=== PATIENT | female | born 2000 | race Caucasian/White ===

== ENCOUNTER 2021-01-21 22:00 | Emergency (ER) | payer MEDICAID, SELFPAY ==
--- NOTE | ~2021-01-21 | CT_ITS ---
EXAMINATION: CT ABDOMEN AND PELVIS WITHOUT CONTRAST CLINICAL INFORMATION: Right upper quadrant and right flank pain COMPARISON: 11/04/2019 TECHNIQUE: Multidetector volumetric imaging was performed from the superior aspect of the liver through the pubic symphysis. Sagittal and coronal reformatted images were obtained on the technologist's workstation. This CT examination was performed using dose optimization techniques as appropriate, variously including the following: *Automated exposure control *Adjustment of mA and/or kV according to patient size (this includes techniques or standardized protocols for targeted exams where dose is matched to indication/reason for exam; i.e. extremities or head) *Use of iterative reconstruction technique DLP: 749 mGy-cm FINDINGS: LUNG BASES: The visualized lung bases are unremarkable. LIVER, GALLBLADDER, AND BILIARY TREE: The liver is normal in size, shape, and attenuation. No focal hepatic lesion or biliary ductal dilatation is present. The gallbladder is unremarkable with no evidence of radiopaque gallstones, gallbladder wall thickening, or obvious pericholecystic inflammatory changes. PANCREAS: Unremarkable. SPLEEN: Unremarkable. ADRENAL GLANDS: Unremarkable. KIDNEYS AND URETERS: The kidneys are normal in size, shape, and attenuation. No hydronephrosis or hydroureter. 0.1 cm left upper pole calculus is 9 cm from the posterior axillary line. BLADDER: Decompressed with no gross abnormality. GASTROINTESTINAL TRACT: Normal appearance of the stomach. The small bowel is normal in caliber without obstruction. Fecalization of the distal ileum suggests slow transit. Normal appendix. No colonic wall thickening or inflammatory change. No free air or free fluid. ABDOMINAL WALL: No significant hernia is appreciated. LYMPH NODES: Normal. VASCULAR: Unremarkable. PELVIC VISCERA: The uterus and adnexa are unremarkable. OSSEOUS STRUCTURES: No acute or suspicious osseous abnormality. CT/CT abdomen pelvis wo con IMPRESSION: No acute findings in the abdomen or pelvis. No inflammatory changes. No hydronephrosis. Tiny nonobstructing left upper pole renal calculus.
[2021-01-21 22:06] VITALS: BP 128/68; PULSE 86; RESP 18; TEMP 36.6; O2SAT 95; BMI 34.7
--- NOTE | 2021-01-21 23:01 | ED_ITS ---
HPI - General Adult General Chief complaint: General Medical <Denise Jimenez NP - Last Filed: 01/22/21 01:30> Stated complaint: flank pain <Denise Jimenez NP - Last Filed: 01/22/21 01:30> Time Seen by Provider: 01/22/21 01:16 <Denise Jimenez NP - Last Filed: 01/22/21 01:30> Source: patient <Denise Jimenez NP - Last Filed: 01/22/21 01:30> Mode of arrival: ambulatory <Denise Jimenez NP - Last Filed: 01/22/21 01:30> Limitations: no limitations <Denise Jimenez NP - Last Filed: 01/22/21 01:30> History of Present Illness HPI narrative: 20-year-old female 2 months presents with 1 month of right upper quadrant pain radiating to her back and shoulder. States that pain has been progressively getting worse, worse when eating and accompanied with nausea and dry heaves.. She does not describe any trauma or abuse, denies chest pain or pressure, palpitations, shortness of breath, shortness of breath on exertion, abdominal distention, dysuria, hematuria, edema, vaginal bleeding or discharge, fevers or chills. <Denise Jimenez NP - Last Filed: 01/22/21 01:30> Onset (ago): month(s) (1) <Denise Jimenez NP - Last Filed: 01/22/21 01:30> Location: back and abdomen <Denise Jimenez NP - Last Filed: 01/22/21 01:30> Severity: moderate <Denise Jimenez NP - Last Filed: 01/22/21 01:30> Severity scale (1-10): 7 <Denise Jimneez NP - Last Filed: 01/22/21 01:30> Quality: aching and constant <Denise Jimenez NP - Last Filed: 01/22/21 01:30> Pain Consistency: constant <Denise Jimenez NP - Last Filed: 01/22/21 01:30> Relieving factors: none <Denise Jimenez NP - Last Filed: 01/22/21 01:30> Exacerbating factors: eating <SHEN Mast Last Filed: 01/22/21 01:30> Associated symptoms: loss of appetite and malaise <SHEN Mast Last Filed: 01/22/21 01:30> Related Data Home medications: Previous Rx's Medication Instructions Recorded cyclobenzaprine 10 mg PO TID PRN #14 tab 01/22/21 <SHEN Mast Last Filed: 01/22/21 01:30> Allergies/adverse reactions: Allergies Allergy/AdvReac Type Severity Reaction Status Date / Time No Known Allergies Allergy Verified 01/21/21 22:11 [No Known Allergies*] <SHEN Mast Last Filed: 01/22/21 01:30> Review of Systems Review of Systems: Constitutional: No Weight loss, No Fever, No Chills, No Night Sweats, No Fatigue, No Malaise ENT/Mouth: No Hearing loss, No Ear Pain, No Nasal Congestion, No Sinus Pain, No Hoarseness, No sore throat, No Rhinorrhea, No Swallowing Difficulty Eyes: No Eye Pain, No Swelling, No Redness, No Foreign Body, No Discharge, No Vision Changes Cardiovascular: No Chest Pain, No SOB, No Dyspnea on Exertion, No Orthopnea, No Edema, No Palpitations Respiratory: No Cough, No Sputum, No Wheezing, No Smoke Exposure, No Dyspnea Gastrointestinal: Positive Nausea, no Vomiting, positive Diarrhea, positive right upper quadrant abdominal Pain, No Hematochezia, No Melena Genitourinary: Positive right flank pain, no irregular bleeding, No Dysuria, No Urinary Frequency, No Hematuria, No Urinary Incontinence, No Urgency, No Urinary Flow Changes, No Hesitancy Musculoskeletal: No joint pain, No Myalgias, No Joint Swelling Skin: No Skin Lesions, No rash Neuro: No Weakness, No Numbness, No Paresthesias, No Loss of Consciousness, No Dizziness, No Headache Psych: No Anxiety/Panic, No Depression, No SI/HI/AH/VH, No Social Issues Heme/Lymph: No Bruising, No Bleeding,No Lymphadenopathy Endocrine: No Polyuria, No Polydipsia, No Temperature Intolerance <SHEN Mast Last Filed: 01/22/21 01:30> Yes all other systems are reviewed and are negative <SHEN Mast Last Filed: 01/22/21 01:30> [facility] Past Medical History Attestation statement: The following information was validated with the patient. <Denise Jimenez NP - Last Filed: 01/22/21 01:30> Source: old records reviewed <Denise Jimenez NP - Last Filed: 01/22/21 01:30> Medical History: Medical History Asthma Kidney stone <Denise Jimenez NP - Last Filed: 01/22/21 01:30> Social History Social History: Social History Advance Directives: No Advance Directives Information Provided: No <Denise Jimenez NP - Last Filed: 01/22/21 01:30> Physical Exam Vital Signs: Vital Signs: Last Vital Signs Temp 97.8 F 01/21/21 22:06 Pulse 81 01/22/21 01:27 Resp 18 01/22/21 03:49 BP 131/73 01/22/21 01:27 Pulse Ox 93 01/22/21 01:27 Body Mass Index 34.7 <Denise Jimenez NP - Last Filed: 01/22/21 01:30> Vital Signs: Last Vital Signs Temp 97.8 F 01/21/21 22:06 Pulse 81 01/22/21 01:27 Resp 18 01/22/21 03:49 BP 131/73 01/22/21 01:27 Pulse Ox 93 01/22/21 01:27 Body Mass Index 34.7 <Jada Stephenson MD - Last Filed: 01/22/21 04:33> Appearance: Alert. Oriented X3. Moderate distress. Eyes: Pupils equal, round and reactive to light. ENT: Pharynx normal. Neck: Normal inspection. Neck supple. CVS: Normal heart rate and rhythm. Pulses normal. Respiratory: No respiratory distress. Breath sounds normal. Abdomen: Soft and tender to right upper quadrant, positive Lawrence. Negative obturator, psoas. Skin: Skin warm and dry. Normal skin color. Normal skin turgor. Extremities: No lower extremity edema. Neuro: No motor deficit. No sensory deficit. <Denise Jimenez NP - Last Filed: 01/22/21 01:30> Course Course Course Narrative: 20-year-old female 2 months presents with 1 month of right upper quadrant pain radiating to her back and shoulder. Will order CBC, Chem 7, urinalysis, liver enzymes, give pain management and L of fluids. CBC and Chem 7 are negative for acute findings, urinalysis is negative. BUN mildly elevated at 18, possibly due to dehydration secondary to poor p.o. intake. We have resuscitated with [address] scan of abdomen pending. 1:17 a.m. patient states that Toradol was minimally effective. Order for morphine 4 mg IV push. 1:29 a.[address]. sign out to Dr Stephenson <Denise Jimenez NP - Last Filed: 01/22/21 01:30> I received sign-out from nurse practitioner Tony. I discussed patient's symptoms, patient states the pain is on the back on the right side. Patient states it hurts more when she moves. Patient states that earlier this evening, she told [employer] that pain makes the pain worse, but now states that food does not worsen his syptoms, states that she's cosntantly nauseous and food makes the nausea worse but not the pain. On my physical exam, patient did not have right upper quadrant pain, negative Lawrence sign, patient has no CVA tenderness either. States whenever she flexes or extends her back hurts more. CT scan shows no acute pathology. Patient has pain likely musculoskeletal <Jada Stephenson MD - Last Filed: 01/22/21 04:33> Medical Decision Making Differential Diagnosis Differential Diagnosis: Kidney stone, cholelithiasis, GERD, PUD, gastritis <Denise Jimenez NP - Last Filed: 01/22/21 01:30> Medical Records Medical records reviewed: Yes I reviewed the patient's medical records. <Denise Jimenez NP - Last Filed: 01/22/21 01:30> Lab Data Lab results reviewed: Yes I reviewed the patient's lab results. <Denise Jimenez NP - Last Filed: 01/22/21 01:30> Result diagrams: : 01/21/21 23:51 01/21/21 23:51 <Denise Jimenez NP - Last Filed: 01/22/21 01:30> Labs: Lab Results 01/21/21 01/21/21 01/21/21 Range/Units 23:51 23:51 23:51 WBC 10.1 (4.8-10.8) X10*3/uL RBC 4.13 L (4.20-5.50) X10*6/uL Hgb 11.9 L (12.0-16.0) g/dl Hct 36.6 L (37-47) % MCV 88.6 (80-98) fL MCH 28.8 (27.0-33.0) pg MCHC 32.5 (31.0-35.0) g/dl RDW 13.5 (11.0-16.0) % Plt Count 262 (160-400) X10*3/uL MPV 10.7 (9.4-12.3) fL Immature Gran % (Auto) 0.2 (0.0-0.4) % Neut % (Auto) 52.6 (45-73) % Lymph % (Auto) 38.4 (20-40) % [place] % (Auto) 6.5 (2-11) % Eos % (Auto) 2.0 (0-4) % Baso % (Auto) 0.3 (0-2) % Lymph # (Auto) 3.9 (1.2-4.9) X10*3/uL [place] # (Auto) 0.7 (0.1-1.2) X10*3/uL Eos # (Auto) 0.2 (0.0-0.4) X10*3/uL Baso # (Auto) 0.0 (0.0-0.2) X10*3/uL Abs Immat Gran (auto) 0.02 (0.00-0.03) X10*3/uL Absolute Neuts (auto) 5.3 (2.0-8.3) X10*3/uL Absolute Nucleated RBC 0.000 (0.0-0.012) X10*3/uL Nucleated RBC % (auto) 0.0 (0.0-0.2) /100WBC PT 13.4 H (10.8-13.0) SEC INR 1.1 (0.9-1.1) APTT 34.0 (24.1-38.0) SEC Sodium 140 (135-145) mmol/L Potassium 3.8 (3.3-5.1) mmol/L Chloride 105 (96-108) mmol/L Carbon Dioxide 24 (22-29) mmol/L Anion Gap 15 (12-20) BUN 18 H (9-16) mg/dL Creatinine 0.73 (0.5-1.4) mg/dL Estim Creat Clear Calc 127.8 Estimated GFR > 60 Random Glucose 84 (60-115) mg/dL Calcium 9.1 (8.4-10.2) mg/dL Total Bilirubin 0.5 (0.0-1.0) mg/dL Direct Bilirubin 0.2 (0.0-0.5) mg/dL AST 14 (5-31) U/L ALT 13 (0-31) U/L Alkaline Phosphatase 77 (39-117) U/L Total Protein 7.6 (6.5-8.0) g/dL Albumin 4.3 (3.5-5.0) g/dL Lipase 13 (8-78) U/L Urine Color Urine Appearance Urine pH (5.0-8.0) Ur Specific [place] (1.005-1.025) Urine Protein (NEG-TRACE) MG/DL Urine Glucose (UA) (NEG) MG/DL Urine Ketones (NEG) MG/DL Urine Blood (NEG) Urine Nitrite (NEG) Ur Leukocyte Esterase (NEG) Urine Test (NEGATIVE) 01/21/21 Range/Units 23:51 WBC (4.8-10.8) X10*3/uL RBC (4.20-5.50) X10*6/uL Hgb (12.0-16.0) g/dl Hct (37-47) % MCV (80-98) fL MCH (27.0-33.0) pg MCHC (31.0-35.0) g/dl RDW (11.0-16.0) % Plt Count (160-400) X10*3/uL MPV (9.4-12.3) fL Immature Gran % (Auto) (0.0-0.4) % Neut % (Auto) (45-73) % Lymph % (Auto) (20-40) % [place] % (Auto) (2-11) % Eos % (Auto) (0-4) % Baso % (Auto) (0-2) % Lymph # (Auto) (1.2-4.9) X10*3/uL [place] # (Auto) (0.1-1.2) X10*3/uL Eos # (Auto) (0.0-0.4) X10*3/uL Baso # (Auto) (0.0-0.2) X10*3/uL Abs Immat Gran (auto) (0.00-0.03) X10*3/uL Absolute Neuts (auto) (2.0-8.3) X10*3/uL Absolute Nucleated RBC (0.0-0.012) X10*3/uL Nucleated RBC % (auto) (0.0-0.2) /100WBC PT (10.8-13.0) SEC INR (0.9-1.1) APTT (24.1-38.0) SEC Sodium (135-145) mmol/L Potassium (3.3-5.1) mmol/L Chloride (96-108) mmol/L Carbon Dioxide (22-29) mmol/L Anion Gap (12-20) BUN (9-16) mg/dL Creatinine (0.5-1.4) mg/dL Estim Creat Clear Calc Estimated GFR Random Glucose (60-115) mg/dL Calcium (8.4-10.2) mg/dL Total Bilirubin (0.0-1.0) mg/dL Direct Bilirubin (0.0-0.5) mg/dL AST (5-31) U/L ALT (0-31) U/L Alkaline Phosphatase (39-117) U/L Total Protein (6.5-8.0) g/dL Albumin (3.5-5.0) g/dL Lipase (8-78) U/L Urine Color YELLOW Urine Appearance CLEAR Urine pH 5.5 (5.0-8.0) Ur Specific [place] >= 1.030 H (1.005-1.025) Urine Protein NEG (NEG-TRACE) MG/DL Urine Glucose (UA) NEG (NEG) MG/DL Urine Ketones NEG (NEG) MG/DL Urine Blood NEG (NEG) Urine Nitrite NEG (NEG) Ur Leukocyte Esterase NEG (NEG) Urine Test NEGATIVE (NEGATIVE) <Denise Curryonato, [employer] - Last Filed: 01/22/21 01:30> Lab Results 01/21/21 01/21/21 01/21/21 Range/Units 23:51 23:51 23:51 WBC 10.1 (4.8-10.8) X10*3/uL RBC 4.13 L (4.20-5.50) X10*6/uL Hgb 11.9 L (12.0-16.0) g/dl Hct 36.6 L (37-47) % MCV 88.6 (80-98) fL MCH 28.8 (27.0-33.0) pg MCHC 32.5 (31.0-35.0) g/dl RDW 13.5 (11.0-16.0) % Plt Count 262 (160-400) X10*3/uL MPV 10.7 (9.4-12.3) fL Immature Gran % (Auto) 0.2 (0.0-0.4) % Neut % (Auto) 52.6 (45-73) % Lymph % (Auto) 38.4 (20-40) % [place] % (Auto) 6.5 (2-11) % Eos % (Auto) 2.0 (0-4) % Baso % (Auto) 0.3 (0-2) % Lymph # (Auto) 3.9 (1.2-4.9) X10*3/uL [place] # (Auto) 0.7 (0.1-1.2) X10*3/uL Eos # (Auto) 0.2 (0.0-0.4) X10*3/uL Baso # (Auto) 0.0 (0.0-0.2) X10*3/uL Abs Immat Gran (auto) 0.02 (0.00-0.03) X10*3/uL Absolute Neuts (auto) 5.3 (2.0-8.3) X10*3/uL Absolute Nucleated RBC 0.000 (0.0-0.012) X10*3/uL Nucleated RBC % (auto) 0.0 (0.0-0.2) /100WBC PT 13.4 H (10.8-13.0) SEC INR 1.1 (0.9-1.1) APTT 34.0 (24.1-38.0) SEC Sodium 140 (135-145) mmol/L Potassium 3.8 (3.3-5.1) mmol/L Chloride 105 (96-108) mmol/L Carbon Dioxide 24 (22-29) mmol/L Anion Gap 15 (12-20) BUN 18 H (9-16) mg/dL Creatinine 0.73 (0.5-1.4) mg/dL Estim Creat Clear Calc 127.8 Estimated GFR > 60 Random Glucose 84 (60-115) mg/dL Calcium 9.1 (8.4-10.2) mg/dL Total Bilirubin 0.5 (0.0-1.0) mg/dL Direct Bilirubin 0.2 (0.0-0.5) mg/dL AST 14 (5-31) U/L ALT 13 (0-31) U/L Alkaline Phosphatase 77 (39-117) U/L Total Protein 7.6 (6.5-8.0) g/dL Albumin 4.3 (3.5-5.0) g/dL Lipase 13 (8-78) U/L Urine Color Urine Appearance Urine pH (5.0-8.0) Ur Specific [place] (1.005-1.025) Urine Protein (NEG-TRACE) MG/DL Urine Glucose (UA) (NEG) MG/DL Urine Ketones (NEG) MG/DL Urine Blood (NEG) Urine Nitrite (NEG) Ur Leukocyte Esterase (NEG) Urine Test (NEGATIVE) 01/21/21 Range/Units 23:51 WBC (4.8-10.8) X10*3/uL RBC (4.20-5.50) X10*6/uL Hgb (12.0-16.0) g/dl Hct (37-47) % MCV (80-98) fL MCH (27.0-33.0) pg MCHC (31.0-35.0) g/dl RDW (11.0-16.0) % Plt Count (160-400) X10*3/uL MPV (9.4-12.3) fL Immature Gran % (Auto) (0.0-0.4) % Neut % (Auto) (45-73) % Lymph % (Auto) (20-40) % [place] % (Auto) (2-11) % Eos % (Auto) (0-4) % Baso % (Auto) (0-2) % Lymph # (Auto) (1.2-4.9) X10*3/uL [place] # (Auto) (0.1-1.2) X10*3/uL Eos # (Auto) (0.0-0.4) X10*3/uL Baso # (Auto) (0.0-0.2) X10*3/uL Abs Immat Gran (auto) (0.00-0.03) X10*3/uL Absolute Neuts (auto) (2.0-8.3) X10*3/uL Absolute Nucleated RBC (0.0-0.012) X10*3/uL Nucleated RBC % (auto) (0.0-0.2) /100WBC PT (10.8-13.0) SEC INR (0.9-1.1) APTT (24.1-38.0) SEC Sodium (135-145) mmol/L Potassium (3.3-5.1) mmol/L Chloride (96-108) mmol/L Carbon Dioxide (22-29) mmol/L Anion Gap (12-20) BUN (9-16) mg/dL Creatinine (0.5-1.4) mg/dL Estim Creat Clear Calc Estimated GFR Random Glucose (60-115) mg/dL Calcium (8.4-10.2) mg/dL Total Bilirubin (0.0-1.0) mg/dL Direct Bilirubin (0.0-0.5) mg/dL AST (5-31) U/L ALT (0-31) U/L Alkaline Phosphatase (39-117) U/L Total Protein (6.5-8.0) g/dL Albumin (3.5-5.0) g/dL Lipase (8-78) U/L Urine Color YELLOW Urine Appearance CLEAR Urine pH 5.5 (5.0-8.0) Ur Specific [place] >= 1.030 H (1.005-1.025) Urine Protein NEG (NEG-TRACE) MG/DL Urine Glucose (UA) NEG (NEG) MG/DL Urine Ketones NEG (NEG) MG/DL Urine Blood NEG (NEG) Urine Nitrite NEG (NEG) Ur Leukocyte Esterase NEG (NEG) Urine Test NEGATIVE (NEGATIVE) <Jada Stephenson MD - Last Filed: 01/22/21 04:33> Imaging Data CT scan - abdomen: Radiologist's impression: FINDINGS: LUNG BASES: The visualized lung bases are unremarkable. LIVER, GALLBLADDER, AND BILIARY TREE: The liver is normal in size, shape, and attenuation. No focal hepatic lesion or biliary ductal dilatation is present. The gallbladder is unremarkable with no evidence of radiopaque gallstones, gallbladder wall thickening, or obvious pericholecystic inflammatory changes. PANCREAS: Unremarkable. SPLEEN: Unremarkable. ADRENAL GLANDS: Unremarkable. KIDNEYS AND URETERS: The kidneys are normal in size, shape, and attenuation. No hydronephrosis or hydroureter. 0.1 cm left upper pole calculus is 9 cm from the posterior axillary line. BLADDER: Decompressed with no gross abnormality. GASTROINTESTINAL TRACT: Normal appearance of the stomach. The small bowel is normal in caliber without obstruction. Fecalization of the distal ileum suggests slow transit. Normal appendix. No colonic wall thickening or inflammatory change. No free air or free fluid. ABDOMINAL WALL: No significant hernia is appreciated. LYMPH NODES: Normal. VASCULAR: Unremarkable. PELVIC VISCERA: The uterus and adnexa are unremarkable. OSSEOUS STRUCTURES: No acute or suspicious osseous abnormality. CT/CT abdomen pelvis wo con IMPRESSION: No acute findings in the abdomen or pelvis. No inflammatory changes. No hydronephrosis. Tiny nonobstructing left upper pole renal calculus. <Jada Stephenson MD - Last Filed: 01/22/21 04:33> Discharge Plan Discharge Clinical Impression: Back pain Qualifiers: Back pain location: back pain in unspecified location Chronicity: chronic Back pain laterality: right Qualified Code(s): M54.9 - Dorsalgia, unspecified <Denise Jimenez NP - Last Filed: 01/22/21 01:30> Patient Disposition: Home, Self-Care <Denise Jimenez NP - Last Filed: 01/22/21 01:30> Instructions: Back Pain (ED) <Denise Jimenez NP - Last Filed: 01/22/21 01:30> Additional Instructions: Please follow-up with your primary care physician tomorrow. If you have any worsening or new symptoms, please return to the emergency room or call 911 <Denise Jimenez NP - Last Filed: 01/22/21 01:30> Prescriptions: New cyclobenzaprine 10 mg tablet 10 mg PO TID PRN (Reason: muscle spasm) Qty: 14 RF: 0 <Denise Jimenez NP - Last Filed: 01/22/21 01:30>
[2021-01-21 23:55] LABS: Basophils Percent Auto 0.3 % (0-2); Eosinophils Absolute Auto 0.2 X10*3/uL (0.0-0.4); Hematocrit 36.6 % (37-47); Hemoglobin 11.9 g/dl (12.0-16.0); Imm Gran Abs Auto 0.02 X10*3/uL (0.00-0.03); Imm Gran Pct Auto 0.2 % (0.0-0.4); Lymphocytes Absolute Auto 3.9 X10*3/uL (1.2-4.9); Lymphocytes Percent Auto 38.4 % (20-40); Mean Corpuscular HGB Conc 32.5 g/dl (31.0-35.0); Mean Corpuscular Hemoglobin 28.8 pg (27.0-33.0); Mean Corpuscular Volume 88.6 fL (80-98); Mean Platelet Volume 10.7 fL (9.4-12.3); Monocytes Absolute Auto 0.7 X10*3/uL (0.1-1.2); Monocytes Percent Auto 6.5 % (2-11); Neutrophils Absolute Auto 5.3 X10*3/uL (2.0-8.3); Neutrophils Percent Auto 52.6 % (45-73); Platelet Count 262 X10*3/uL (160-400); Red Blood Count 4.13 X10*6/uL (4.20-5.50); Red Cell Distribution Width 13.5 % (11.0-16.0); White Blood Count 10.1 X10*3/uL (4.8-10.8)
[2021-01-21] MEDS: 0.9 % Sodium Chloride 1,000 ML 999 ML IVCONT (23:55)
[2021-01-21 23:56] LABS: MANUAL DIFF FLAG NO
[2021-01-21] MEDS: Ketorolac Tromethamine 30 MG/ML VIAL IVPUSH (23:58)
[2021-01-21] MEDS: ondansetron HCL 4 MG/2 ML VIAL IVPUSH (23:58)
[2021-01-21 23:59] LABS: Glucose Urine UA NEG (NEG); Leukocyte Esterase Urine NEG (NEG); Nitrite Urine NEG (NEG); PH 5.5 (5.0-8.0); Specific Gravity - Urine >= 1.030 (1.005-1.025); Urine Blood NEG (NEG); Urine Ketones NEG (NEG); Urine Protein NEG (NEG-TRACE)
[2021-01-22 00:02] LABS: Appearance Urine CLEAR; Color Urine YELLOW
[2021-01-22 00:03] LABS: INTERNATIONAL NORM RATIO 1.1 (0.9-1.1); Prothrombin Time 13.4 SEC (10.8-13.0)
[2021-01-22 00:17] LABS: Alanine Aminotransferase 13 U/L (0-31); Albumin Level 4.3 g/dL (3.5-5.0); Alkaline Phosphatase 77 U/L (39-117); Anion Gap 15 (12-20); Aspartate Amino Transferase 14 U/L (5-31); Bilirubin Direct 0.2 mg/dL (0.0-0.5); Bilirubin Total 0.5 mg/dL (0.0-1.0); Blood Urea Nitrogen 18 mg/dL (9-16); Calcium 9.1 mg/dL (8.4-10.2); Carbon Dioxide 24 mmol/L (22-29); Chloride 105 mmol/L (96-108); Creatinine Clr Calc Pharmacy 127.8; Estimated Glomerular Filt Rate > 60; Glucose Random 84 mg/dL (60-115); Lipase 13 U/L (8-78); Potassium 3.8 mmol/L (3.3-5.1); Sodium 140 mmol/L (135-145); Total Protein 7.6 g/dL (6.5-8.0)
[2021-01-22 01:27] VITALS: BP 131/73; PULSE 81; RESP 18; O2SAT 93
[2021-01-22 01:28] VITALS: RESP 18
[2021-01-22] MEDS: Morphine Sulfate 4 MG/ML CARTRIDGE IVPUSH ×2 (01:28→03:49)
[2021-01-22 03:17] LABS: UPreg QC Valid YES; Urine Pregnancy NEGATIVE (NEGATIVE)
--- NOTE | 2021-01-22 03:29 | PC.NURSE ---
pt taken to rad. via stretcher.
[2021-01-22 03:49] VITALS: RESP 18
[2021-01-22 04:00] VITALS: BP 116/64; PULSE 67; RESP 18; O2SAT 98
[2021-01-22] MEDS: diazePAM 5 MG TABLET PO (04:45)
[2021-01-22 04:48] LABS: Influenza A PCR NEGATIVE (Negative); Influenza B PCR NEGATIVE (Negative); Resp Syncy Virus RNA Qual PCR NEGATIVE (Negative); SARS COV2 PCR INHOUSE NEGATIVE (Negative)
== END 2021-01-22 04:52 | disposition home or self-care (01) ==
PROVIDERS: Nurse Practitioner Family; Emergency Provider Emergency Medicine
DX: G89.29 Other chronic pain (principal); M54.9 Dorsalgia, unspecified; N20.0 Calculus of kidney; Z20.822 Contact with and (suspected) exposure to COVID-19; Z87.442 Personal history of urinary calculi
CPT/HCPCS: 0241U; 36415; 74176; 80048; 80076; 81003; 81025; 83690; 85025; 85610; 85730; 96361; 96374; 96375; 96376; 99284; J1885; J2270; J2405

== ENCOUNTER 2021-07-30 17:13 | Emergency (ER) | payer MEDICAID, SELFPAY ==
--- NOTE | ~2021-07-30 | CT_ITS ---
EXAMINATION: CT ABDOMEN AND PELVIS WITHOUT CONTRAST CLINICAL INFORMATION: Bilateral flank pain. COMPARISON: CT abdomen and pelvis 01/22/2021. TECHNIQUE: Multidetector volumetric imaging was performed from the superior aspect of the liver through the pubic symphysis. Sagittal and coronal reformatted images were obtained on the technologist's workstation. This CT examination was performed using dose optimization techniques as appropriate, variously including the following: *Automated exposure control. *Adjustment of mA and/or kV according to patient size (this includes techniques or standardized protocols for targeted exams where dose is matched to indication/reason for exam; i.e. extremities or head). *Use of iterative reconstruction technique. DLP: 751 mGy-cm FINDINGS: LUNG BASES: The visualized lung bases are unremarkable. LIVER, GALLBLADDER, AND BILIARY TREE: The noncontrast liver is normal in size, shape, and attenuation. No focal hepatic lesion or biliary ductal dilatation is evident. The gallbladder is unremarkable with no evidence of radiopaque gallstones, gallbladder wall thickening, or obvious pericholecystic inflammatory changes. PANCREAS: Unremarkable. SPLEEN: Unremarkable. ADRENAL GLANDS: Unremarkable. KIDNEYS AND URETERS: Again seen is a 0.2 cm non-obstructive calculus in the upper pole of the left kidney as previously described. No additional calculi are identified. No evidence of hydronephrosis or hydroureter. No perinephric stranding. BLADDER: Underdistended and unremarkable. GASTROINTESTINAL TRACT: The small and large bowel are unremarkable. The appendix is unremarkable. No free air. ABDOMINAL WALL: No significant hernia is appreciated. LYMPH NODES: No evidence of pathologically enlarged mesenteric or retroperitoneal lymphadenopathy by size criteria. VASCULAR: Unremarkable noncontrast appearance. PELVIC VISCERA: The uterus and adnexa are unremarkable. There is trace pelvic free fluid which is likely physiologic in nature. OSSEOUS STRUCTURES: No acute or suspicious osseous abnormality. CT/CT abdomen pelvis wo con IMPRESSION: 1. Unchanged tiny non-obstructive calculus in the upper pole of the left kidney. No additional calculi are identified. No evidence of hydronephrosis or hydroureter. 2. No acute abnormality within the abdomen and pelvis.
[2021-07-30 17:15] VITALS: BP 138/97; PULSE 74; RESP 17; TEMP 36.7; O2SAT 97; BMI 33.8
--- NOTE | 2021-07-30 19:22 | ED_ITS ---
HPI - General Adult General Chief complaint: General Medical Stated complaint: Kidney pain Time Seen by Provider: 07/30/21 20:17 Source: patient Mode of arrival: ambulatory Limitations: no limitations History of Present Illness HPI narrative: A 21-year-old female presents with multiple complaints. Reports bilateral flank pain, right greater than the left, increased urination, vaginal discharge with abnormal smell. Reports that she did have an appointment with the urologist however the appointments keep changing. She does not report any fevers, chills, chest pain or pressure, palpitations, shortness of breath, shortness of breath on exertion, abdominal distention, risk for sexually transmitted infection, trauma, edema, nausea, vomiting, diarrhea, constipation, or weakness. Onset (ago): month(s) (1) Location: abdomen and pelvis Radiation: flank Severity: moderate Quality: burning, aching and constant Pain Consistency: constant Relieving factors: none Exacerbating factors: movement Associated symptoms: other (Vaginal discharge) Treatments prior to arrival: none Related Data Previous Rx's Medication Instructions Recorded cyclobenzaprine 10 mg tablet 10 mg PO TID PRN #14 tab 01/22/21 ibuprofen 600 mg tablet 600 mg PO Q6H PRN #60 tab 07/30/21 metronidazole 500 mg tablet 500 mg PO Q12H 7 Days #14 tab 07/30/21 (Flagyl) Allergies Allergy/AdvReac Type Severity Reaction Status Date / Time No Known Allergies Allergy Verified 07/30/21 17:14 [No Known Allergies*] Review of Systems Review of Systems: Constitutional: No Fever, No Chills ENT/Mouth: No Ear Pain, No Hoarseness, No sore throat Eyes: No Eye Pain, No Swelling, No Redness, No Foreign Body Cardiovascular: No Chest Pain, No SOB Respiratory: No Cough, No Dyspnea Gastrointestinal: No Nausea, No Vomiting, No Diarrhea, positive abdominal Pain, positive bilateral flank pain Genitourinary: Positive Dysuria, No Hematuria, positive vaginal discharge Musculoskeletal: No joint pain, No Myalgias, No Joint Swelling Skin: No Skin lacerations, No rash Neuro: No Weakness, No Numbness, No Paresthesias, No Loss of Consciousness, No Dizziness, No Headache Psych: No Anxiety/Panic, No Depression Heme/Lymph: no easy bruising, no Lymphadenopathy Endocrine: No Polyuria, No Polydipsia Yes all other systems are reviewed and are negative PMFSH Past Medical History Attestation statement: The following information was validated with the patient. Source: old records reviewed Medical History Asthma Kidney stone Social History Social History Alcohol intake: unknown Patient Tobacco Use Status: Never used Tobacco Use of substances other than those prescribed or required for medical reasons: Yes Substance Use Type: Marijuana Advance Directives: No Advance Directives Information Provided: Yes Patient : No Physical Exam Vital Signs: Vital Signs: Last Vital Signs Temp 98.0 F 07/30/21 17:15 Pulse 66 07/30/21 22:00 Resp 15 07/30/21 22:00 BP 116/74 07/30/21 22:00 Pulse Ox 100 07/30/21 22:00 Body Mass Index 33.8 Appearance: Alert. Oriented X3. Mild distress. Eyes: Pupils equal, round and reactive to light. Sclera nonicteric. ENT: Pharynx normal. Moist mucous membranes. Neck: Normal inspection. Neck supple. CVS: Normal heart rate and rhythm. Pulses normal. Respiratory: No respiratory distress. Breath sounds normal. Abdomen: Soft and suprapubic tenderness noted to palpation, bilateral CVA tenderness noted. Skin: Skin warm and dry. Normal skin color. Normal skin turgor. Extremities: No lower extremity edema. Strength 5/5 to all extremities. Neuro: No motor deficit. No sensory deficit. Cranial nerves 2-12 intact. : External Female Exam: normal external appearance Speculum Exam - Vagina: abnormal vaginal discharge white Speculum Exam - Cervix: Abnormal cervical discharge present white and Other cervical findings present (Slit cervix consistent with vaginal , pink friable tissue of os) Bimanual exam- vagina & uterus: normal bimanual exam and uterine size normal Bimanual Exam- Adnexa, other: normal adnexae Course Course Course Narrative: 21-year-old female presents with multiple complaints. Pelvic exam completed with RN as hebrew cantor, copious amounts of white frothy discharge consistent with bacterial vaginosis, cervical os is slit consistent with prior vaginal , does have some pink friable tissue at the os, could possibly be due to suspected bacterial vaginosis. No cervical motion tenderness or adnexal tenderness noted to bimanual exam. Patient tolerated procedure well. Order for CT scan of abdomen and pelvis. CT scan indicates nonobstructing left renal calculus which has been present during prior exams. No other abnormal findings noted. Will have patient follow-up as an outpatient with OBGYN for repeat pelvic exam and Pap, will have patient follow-up with Urology for kidney stone pain. Patient verbalized understanding of and agrees plan of care discharge home. Medical Decision Making Differential Diagnosis Differential Diagnosis: Renal stones, acute abdomen, PID, BV, STI Medical Records Medical records reviewed: Yes I reviewed the patient's medical records. Lab Data Lab results reviewed: Yes I reviewed the patient's lab results. Result diagrams: 07/30/21 19:39 07/30/21 19:39 Labs: Lab Results 07/30/21 07/30/21 07/30/21 Range/Units 19:39 19:39 19:39 WBC 11.2 H (4.8-10.8) X10*3/uL RBC 4.16 L (4.20-5.50) X10*6/uL Hgb 12.3 (12.0-16.0) g/dl Hct 37.6 (37-47) % MCV 90.4 (80-98) fL MCH 29.6 (27.0-33.0) pg MCHC 32.7 (31.0-35.0) g/dl RDW 12.7 (11.0-16.0) % Plt Count 274 (160-400) X10*3/uL MPV 11.1 (9.4-12.3) fL Immature Gran % (Auto) 0.4 (0.0-0.4) % Neut % (Auto) 64.7 (45-73) % Lymph % (Auto) 27.5 (20-40) % [facility] % (Auto) 6.3 (2-11) % Eos % (Auto) 0.8 (0-4) % Baso % (Auto) 0.3 (0-2) % Lymph # (Auto) 3.1 (1.2-4.9) X10*3/uL [facility] # (Auto) 0.7 (0.1-1.2) X10*3/uL Eos # (Auto) 0.1 (0.0-0.4) X10*3/uL Baso # (Auto) 0.0 (0.0-0.2) X10*3/uL Abs Immat Gran (auto) 0.04 H (0.00-0.03) X10*3/uL Absolute Neuts (auto) 7.2 (2.0-8.3) X10*3/uL Absolute Nucleated RBC 0.000 (0.0-0.012) X10*3/uL Nucleated RBC % (auto) 0.0 (0.0-0.2) /100WBC Sodium 140 (135-145) mmol/L Potassium 3.7 (3.3-5.1) mmol/L Chloride 105 (96-108) mmol/L Carbon Dioxide 25 (22-29) mmol/L Anion Gap 14 (12-20) BUN 11 (9-16) mg/dL Creatinine 0.66 (0.5-1.4) mg/dL Estim Creat Clear Calc 138.3 Estimated GFR > 60 Random Glucose 86 (60-115) mg/dL Calcium 9.5 (8.4-10.2) mg/dL Urine Color YELLOW Urine Appearance CLEAR Urine pH 6.0 (5.0-8.0) Ur Specific [place] >= 1.030 H (1.005-1.025) Urine Protein NEG (NEG-TRACE) MG/DL Urine Glucose (UA) NEG (NEG) MG/DL Urine Ketones NEG (NEG) MG/DL Urine Blood NEG (NEG) Urine Nitrite NEG (NEG) Ur Leukocyte Esterase NEG (NEG) Urine Test (NEGATIVE) 07/30/21 Range/Units 19:39 WBC (4.8-10.8) X10*3/uL RBC (4.20-5.50) X10*6/uL Hgb (12.0-16.0) g/dl Hct (37-47) % MCV (80-98) fL MCH (27.0-33.0) pg MCHC (31.0-35.0) g/dl RDW (11.0-16.0) % Plt Count (160-400) X10*3/uL MPV (9.4-12.3) fL Immature Gran % (Auto) (0.0-0.4) % Neut % (Auto) (45-73) % Lymph % (Auto) (20-40) % [facility] % (Auto) (2-11) % Eos % (Auto) (0-4) % Baso % (Auto) (0-2) % Lymph # (Auto) (1.2-4.9) X10*3/uL [facility] # (Auto) (0.1-1.2) X10*3/uL Eos # (Auto) (0.0-0.4) X10*3/uL Baso # (Auto) (0.0-0.2) X10*3/uL Abs Immat Gran (auto) (0.00-0.03) X10*3/uL Absolute Neuts (auto) (2.0-8.3) X10*3/uL Absolute Nucleated RBC (0.0-0.012) X10*3/uL Nucleated RBC % (auto) (0.0-0.2) /100WBC Sodium (135-145) mmol/L Potassium (3.3-5.1) mmol/L Chloride (96-108) mmol/L Carbon Dioxide (22-29) mmol/L Anion Gap (12-20) BUN (9-16) mg/dL Creatinine (0.5-1.4) mg/dL Estim Creat Clear Calc Estimated GFR Random Glucose (60-115) mg/dL Calcium (8.4-10.2) mg/dL Urine Color Urine Appearance Urine pH (5.0-8.0) Ur Specific [place] (1.005-1.025) Urine Protein (NEG-TRACE) MG/DL Urine Glucose (UA) (NEG) MG/DL Urine Ketones (NEG) MG/DL Urine Blood (NEG) Urine Nitrite (NEG) Ur Leukocyte Esterase (NEG) Urine Test NEGATIVE (NEGATIVE) Imaging Data CT scan - abdomen: Attestation: I personally reviewed and interpreted this imaging study as follows: Radiologist's impression: EXAMINATION: CT ABDOMEN AND PELVIS WITHOUT CONTRAST? CLINICAL INFORMATION: Bilateral flank pain.? COMPARISON: CT abdomen and pelvis 01/22/2021.? TECHNIQUE: Multidetector volumetric imaging was performed from the superior aspect of the liver through the pubic symphysis. Sagittal and coronal reformatted images were obtained on the technologist's workstation.? This CT examination was performed using dose optimization techniques as appropriate, variously including the following: *Automated exposure control. *Adjustment of mA and/or kV according to patient size (this includes techniques or standardized protocols for targeted exams where dose is matched to indication/reason for exam; i.e. extremities or head). *Use of iterative reconstruction technique. DLP: 751 mGy-cm FINDINGS: LUNG BASES: The visualized lung bases are unremarkable.? LIVER, GALLBLADDER, AND BILIARY TREE: The noncontrast liver is normal in size, shape, and attenuation. No focal hepatic lesion or biliary ductal dilatation is evident. The gallbladder is unremarkable with no evidence of radiopaque gallstones, gallbladder wall thickening, or obvious pericholecystic inflammatory changes.? PANCREAS: Unremarkable.? SPLEEN: Unremarkable.? ADRENAL GLANDS: Unremarkable.? KIDNEYS AND URETERS: Again seen is a 0.2 cm non-obstructive calculus in the upper pole of the left kidney as previously described. No additional calculi are identified. No evidence of hydronephrosis or hydroureter. No perinephric stranding. BLADDER: Underdistended and unremarkable.? GASTROINTESTINAL TRACT: The small and large bowel are unremarkable. The appendix is unremarkable. No free air. ABDOMINAL WALL: No significant hernia is appreciated.? LYMPH NODES: No evidence of pathologically enlarged mesenteric or retroperitoneal lymphadenopathy by size criteria. VASCULAR: Unremarkable noncontrast appearance. PELVIC VISCERA: The uterus and adnexa are unremarkable. There is trace pelvic free fluid which is likely physiologic in nature. OSSEOUS STRUCTURES: No acute or suspicious osseous abnormality.? CT/CT abdomen pelvis wo con IMPRESSION: 1. Unchanged tiny non-obstructive calculus in the upper pole of the left kidney. No additional calculi are identified. No evidence of hydronephrosis or hydroureter. ? 2. No acute abnormality within the abdomen and pelvis.? Discharge Plan Discharge Clinical Impression: Kidney stone, Bacterial vaginosis Patient Disposition: Home, Self-Care Instructions: Bacterial Vaginosis (ED), Kidney Stones (ED), Vaginal Discharge (ED) Additional Instructions: You were evaluated for multiple complaints. For your flank pain, CT scan indicates nonobstructing left-sided kidney stone. Please follow-up with Urology. Pelvic exam indicates copious amounts of vaginal discharge and some irritation at the cervical os. You must follow-up with gynecology for further evaluation. We will prescribe Flagyl for suspected bacterial vaginosis. Do not drink any alcohol while taking Flagyl. Thank you for choosing this emergency department for evaluation. Please follow-up with primary care physician as needed. Return to the emergency department for any new, concerning, or worsening symptoms. Prescriptions: New metronidazole [Flagyl] 500 mg tablet 500 mg PO Q12H 7 Days Qty: 14 RF: 0 ibuprofen 600 mg tablet 600 mg PO Q6H PRN (Reason: pain) Qty: 60 RF: 0 No Action cyclobenzaprine 10 mg tablet 10 mg PO TID PRN (Reason: muscle spasm) Qty: 14 RF: 0 Referrals: Kenney Reinoso MD [Physician] - 2 days (Nonobstructing kidney stone) Richard Joiner MD [Physician] - 2 days (Friable tissue to cervical os, suspicion of bacterial vaginosis)
[2021-07-30 19:47] LABS: Basophils Percent Auto 0.3 % (0-2); Eosinophils Absolute Auto 0.1 X10*3/uL (0.0-0.4); Eosinophils Percent Auto 0.8 % (0-4); Hematocrit 37.6 % (37-47); Hemoglobin 12.3 g/dl (12.0-16.0); Imm Gran Abs Auto 0.04 X10*3/uL (0.00-0.03); Imm Gran Pct Auto 0.4 % (0.0-0.4); Lymphocytes Absolute Auto 3.1 X10*3/uL (1.2-4.9); Lymphocytes Percent Auto 27.5 % (20-40); MANUAL DIFF FLAG NO; Mean Corpuscular HGB Conc 32.7 g/dl (31.0-35.0); Mean Corpuscular Hemoglobin 29.6 pg (27.0-33.0); Mean Corpuscular Volume 90.4 fL (80-98); Mean Platelet Volume 11.1 fL (9.4-12.3); Monocytes Absolute Auto 0.7 X10*3/uL (0.1-1.2); Monocytes Percent Auto 6.3 % (2-11); Neutrophils Absolute Auto 7.2 X10*3/uL (2.0-8.3); Neutrophils Percent Auto 64.7 % (45-73); Platelet Count 274 X10*3/uL (160-400); Red Blood Count 4.16 X10*6/uL (4.20-5.50); Red Cell Distribution Width 12.7 % (11.0-16.0); White Blood Count 11.2 X10*3/uL (4.8-10.8)
[2021-07-30] MEDS: Ketorolac Tromethamine 15 MG/ML VIAL 30 MG IVPUSH (19:47)
[2021-07-30] MEDS: 0.9 % Sodium Chloride 1,000 ML 999 ML IVCONT (19:47)
[2021-07-30] MEDS: ondansetron HCL 4 MG/2 ML VIAL IVPUSH (19:47)
[2021-07-30 19:48] LABS: Glucose Urine UA NEG (NEG); Leukocyte Esterase Urine NEG (NEG); Nitrite Urine NEG (NEG); Specific Gravity - Urine >= 1.030 (1.005-1.025); Urine Blood NEG (NEG); Urine Ketones NEG (NEG); Urine Protein NEG (NEG-TRACE)
[2021-07-30 19:51] LABS: Appearance Urine CLEAR; Color Urine YELLOW; UPreg QC Valid YES; Urine Pregnancy NEGATIVE (NEGATIVE)
[2021-07-30 20:00] VITALS: BP 119/74; PULSE 84; RESP 15; O2SAT 100
[2021-07-30 20:06] LABS: Anion Gap 14 (12-20); Blood Urea Nitrogen 11 mg/dL (9-16); Calcium 9.5 mg/dL (8.4-10.2); Carbon Dioxide 25 mmol/L (22-29); Chloride 105 mmol/L (96-108); Creatinine Clr Calc Pharmacy 138.3; Estimated Glomerular Filt Rate > 60; Glucose Random 86 mg/dL (60-115); Potassium 3.7 mmol/L (3.3-5.1); Sodium 140 mmol/L (135-145)
[2021-07-30] MEDS: metroNIDAZOLE 500 MG TABLET PO (20:32)
--- NOTE | 2021-07-30 20:36 | PC.NURSE ---
Patient medicated per emar as noted. Patient asking for pain medication due to cramping.
[2021-07-30] MEDS: Acetaminophen 325 MG TABLET 650 MG PO (20:45)
[2021-07-30 22:00] VITALS: BP 116/74; PULSE 66; RESP 15; O2SAT 100
[2021-07-31 03:02] LABS: CT PCR NOT DETECTED (Not Detect.); NG PCR NOT DETECTED (Not Detect.)
[2021-07-31 15:15] LABS: BV Int Neg Control Negative (Negative); BV Int Pos Control Positive (Positive)
== END 2021-07-30 23:10 | disposition home or self-care (01) ==
PROVIDERS: Nurse Practitioner Family; Emergency Provider Internal Medicine; PCP Internal Medicine
DX: N20.0 Calculus of kidney (principal); N76.0 Acute vaginitis; R10.9 Unspecified abdominal pain; Z79.899 Other long term (current) drug therapy
CPT/HCPCS: 36415; 74176; 80048; 81003; 81025; 85025; 87480; 87491; 87510; 87591; 87660; 96365; 96375; 99284; J1885; J2405

== ENCOUNTER → 2021-09-15 14:41 | Outpatient (BNVA) | payer MEDICAID, SELFPAY | DX: N20.0 Calculus of kidney (principal) ==

== ENCOUNTER 2022-01-19 12:31 | Emergency (ER) | payer MEDICAID, SELFPAY ==
[2022-01-19 12:32] VITALS: BP 139/83; PULSE 80; RESP 16; TEMP 36.6; O2SAT 98; BMI 32.2
[2022-01-19 13:09] LABS: Appearance Urine CLEAR; Color Urine YELLOW; Glucose Urine UA NEG (NEG); Leukocyte Esterase Urine NEG (NEG); Nitrite Urine NEG (NEG); PH 6.5 (5.0-8.0); Urine Blood NEG (NEG); Urine Ketones NEG (NEG); Urine Protein NEG (NEG-TRACE)
== END 2022-01-19 17:44 | disposition left against medical advice (07) ==
PROVIDERS: Emergency Provider Emergency Medicine
DX: R10.9 Unspecified abdominal pain (principal); R35.0 Frequency of micturition
CPT/HCPCS: 81003; 99282; 99283

== ENCOUNTER 2022-03-04 19:20 | Emergency (ER) | payer MEDICAID, SELFPAY ==
--- NOTE | ~2022-03-04 | US_ITS ---
EXAMINATION: US PELVIS CLINICAL INFORMATION: Left pelvic pain COMPARISON: Ultrasound dated 07/30/2021 TECHNIQUE: Ultrasound of the pelvis is performed using both transabdominal and transvaginal transducers along with Doppler. Transvaginal imaging is performed due to inadequate visualization transabdominally. FINDINGS: Uterus: The uterus is anteverted and measures 9.4 x 3.9 x 5.6 cm. The double wall endometrial thickness is 6 mm. The uterus is smooth in contour and has normal myometrial echogenicity. No visible fibroid. Adnexa: Both ovaries are visualized. There is normal color flow to the adnexa. There is no ovarian torsion. There is no pelvic ascites or fluid collection. Right ovary measures 3.0 x 1.9 x 2.7 cm. Left ovary measures 2.9 x 2.5 x 1.5 cm. US/US pelvic and transvaginal IMPRESSION: Unremarkable pelvic sonogram
--- NOTE | ~2022-03-04 | CT_ITS ---
EXAMINATION: CT ABDOMEN AND PELVIS WITHOUT CONTRAST CLINICAL INFORMATION: Left flank pain COMPARISON: 07.30.2021 TECHNIQUE: Multidetector volumetric imaging was performed from the superior aspect of the liver through the pubic symphysis. Sagittal and coronal reformatted images were obtained on the technologist's workstation. This CT examination was performed using dose optimization techniques as appropriate, variously including the following: *Automated exposure control *Adjustment of mA and/or kV according to patient size (this includes techniques or standardized protocols for targeted exams where dose is matched to indication/reason for exam; i.e. extremities or head) *Use of iterative reconstruction technique DLP: 643 mGy-cm FINDINGS: LUNG BASES: The visualized lung bases are unremarkable. LIVER, GALLBLADDER, AND BILIARY TREE: The liver is normal in size, shape, and attenuation. No focal hepatic lesion or biliary ductal dilatation is present. Gallbladder unremarkable. PANCREAS: Unremarkable. SPLEEN: Unremarkable. ADRENAL GLANDS: Unremarkable. KIDNEYS AND URETERS: The kidneys are normal in size, shape, and attenuation. Stable punctate nonobstructive calculus in the upper pole of left kidney. No additional urinary calculi. No hydronephrosis or hydroureter. No perinephric stranding. BLADDER: Unremarkable. GASTROINTESTINAL TRACT: The small and large bowel are unremarkable. The appendix is unremarkable. ABDOMINAL WALL: No significant hernia is appreciated. LYMPH NODES: Normal. VASCULAR: Unremarkable. PELVIC VISCERA: Unremarkable. OSSEOUS STRUCTURES: Unremarkable. CT/CT abdomen pelvis wo con IMPRESSION: Stable punctate calculus in the upper pole left kidney. No hydronephrosis or ureteral calculi. No potential etiology for the patient's left flank pain is identified.
--- NOTE | ~2022-03-04 | US_ITS ---
EXAMINATION: US PELVIS CLINICAL INFORMATION: Left pelvic pain COMPARISON: Ultrasound dated 07/30/2021 TECHNIQUE: Ultrasound of the pelvis is performed using both transabdominal and transvaginal transducers along with Doppler. Transvaginal imaging is performed due to inadequate visualization transabdominally. FINDINGS: Uterus: The uterus is anteverted and measures 9.4 x 3.9 x 5.6 cm. The double wall endometrial thickness is 6 mm. The uterus is smooth in contour and has normal myometrial echogenicity. No visible fibroid. Adnexa: Both ovaries are visualized. There is normal color flow to the adnexa. There is no ovarian torsion. There is no pelvic ascites or fluid collection. Right ovary measures 3.0 x 1.9 x 2.7 cm. Left ovary measures 2.9 x 2.5 x 1.5 cm. US/US pelvic ovarian doppler IMPRESSION: Unremarkable pelvic sonogram
[2022-03-04 20:04] VITALS: BP 132/60; PULSE 69; RESP 16; TEMP 36.9; O2SAT 98; BMI 31.8
[2022-03-04 20:23] LABS: MANUAL DIFF FLAG NO
[2022-03-04 20:24] LABS: Basophils Percent Auto 0.3 % (0-2); Eosinophils Absolute Auto 0.2 X10*3/uL (0.0-0.4); Eosinophils Percent Auto 1.9 % (0-4); Hematocrit 35.4 % (37.0-47.0); Hemoglobin 11.4 g/dl (12.0-16.0); Imm Gran Abs Auto 0.01 X10*3/uL (0.00-0.03); Imm Gran Pct Auto 0.1 % (0.0-0.4); Lymphocytes Percent Auto 39.2 % (20-40); Mean Corpuscular HGB Conc 32.2 g/dl (31.0-35.0); Mean Corpuscular Hemoglobin 29.2 pg (27.0-33.0); Mean Corpuscular Volume 90.8 fL (80.0-98.0); Monocytes Absolute Auto 0.6 X10*3/uL (0.1-1.2); Monocytes Percent Auto 7.1 % (2-11); Neutrophils Percent Auto 51.4 % (45-73); Platelet Count 272 X10*3/uL (160-400); Red Cell Distribution Width 12.6 % (11.0-16.0); White Blood Count 7.7 X10*3/uL (4.8-10.8)
[2022-03-04 20:45] LABS: Anion Gap 10 (12-20); Blood Urea Nitrogen 14 mg/dL (9-16); Calcium 9.6 mg/dL (8.4-10.2); Carbon Dioxide 28 mmol/L (22-29); Chloride 106 mmol/L (96-108); Creatinine Clr Calc Pharmacy 119.6; Estimated Glomerular Filt Rate > 60; Glucose Random 94 mg/dL (60-115); Potassium 4.3 mmol/L (3.3-5.1); Sodium 140 mmol/L (135-145)
[2022-03-04 20:54] LABS: Appearance Urine CLEAR; Color Urine YELLOW; Glucose Urine UA NEG (NEG); Leukocyte Esterase Urine NEG (NEG); Nitrite Urine NEG (NEG); PH 5.5 (5.0-8.0); Specific Gravity - Urine >= 1.030 (1.005-1.025); Urine Blood NEG (NEG); Urine Ketones NEG (NEG); Urine Protein NEG (NEG-TRACE)
[2022-03-04 21:24] LABS: UPreg QC Valid YES; Urine Pregnancy NEGATIVE (NEGATIVE)
[2022-03-04 23:37] VITALS: BP 117/78; PULSE 73; RESP 16; TEMP 36.6; O2SAT 98
--- NOTE | 2022-03-05 00:19 | ED.ABDPAIN ---
HPI - Abdominal Pain General Chief Complaint: Abdominal Pain Stated Complaint: left sided lower abd and back pain Time Seen by Provider: 03/05/22 00:16 Source: patient Mode of arrival: ambulatory History of Present Illness HPI narrative: 21-year-old female without significant past medical history other than a known kidney stone that she feels may have dropped down as she had onset of left flank pain yesterday that is been sharp and constant and not associated with fever, chills, nausea, vomiting, or diarrhea. Patient states that she feels like it radiates into her left ovary. She has tried both Tylenol and ibuprofen. Related Data Previous Rx's Medication Instructions Recorded cyclobenzaprine 10 mg tablet 10 mg PO TID PRN #14 tab 01/22/21 ibuprofen 600 mg tablet 600 mg PO Q6H PRN #60 tab 07/30/21 metronidazole 500 mg tablet 500 mg PO Q12H 7 Days #14 tab 07/30/21 (Flagyl) pyridoxine (vitamin B6) 100 mg 100 mg PO DAILY 90 Days #90 tab 09/15/21 tablet Allergies Allergy/AdvReac Type Severity Reaction Status Date / Time No Known Allergies Allergy Verified 01/19/22 12:32 [No Known Allergies*] Review of Systems Review of Systems Pertinent positives and negatives as stated in HPI 10 point review of systems is otherwise negative. PMFSH Past Medical History Source: nursing notes reviewed Medical History Asthma Kidney stone UTI (urinary tract infection) Social History Social History Alcohol intake: unknown Patient Tobacco Use Status: Never used Tobacco Substance Use Type: Marijuana Advance Directives: No Advance Directives Information Provided: No Patient : No Physical Exam ED Vital Signs: Vital Signs - 24 hr 03/04/22 20:04 03/04/22 23:37 Temperature 98.4 F 97.9 F Pulse Rate 69 73 Respiratory Rate 16 16 Blood Pressure 132/60 117/78 Pulse Oximetry 98 98 BMI result Body Mass Index 31.8 VITAL SIGNS: Reviewed. GENERAL: Well developed, well nourished, in no acute distress. HEAD: Normocephalic/atraumatic EYES: PERRLA, EOMI EARS: Ext canals without abnormality OROPHARYNX: no oral lesions noted, posterior pharynx clear LUNGS: Normal breath sounds. No adventitious sounds or accessory muscle use. SpO2<98> CARDIOVASCULAR: Regular rate and rhythm without noted murmurs ABDOMEN: Soft, non-tender, non-distended with bowel sounds, no CVA tenderness BACK: Patient's pain is at the left lower paraspinal area/superior gluteus MUSCULOSKELETAL: No tenderness, deformities, or effusions noted on gross inspection. EXTREMITIES: No cyanosis, clubbing or edema. SKIN: Inspection of the skin reveals no rashes NEUROLOGIC: Alert and oriented x 4. Strength and sensation to light touch were grossly intact x 4. Course Course Course Narrative: 21-year-old female with history and clinical presentation suggestive of possible ectopic, renal colic, UTI, ovarian torsion. Review of all investigations otherwise negative for acute findings and will pursue CT scan of the abdomen pelvis and possible ultrasound. Review of all investigations negative for any acute findings on re-evaluation patient reports complete resolution of her pain. All results discussed with her at bedside. She is discharged home in stable condition. MDM - Abdominal Pain Lab Data Result diagrams: 03/04/22 20:15 03/04/22 20:15 Labs: Lab Results 03/04/22 03/04/22 03/04/22 Range/Units 20:15 20:15 20:31 WBC 7.7 (4.8-10.8) X10*3/uL RBC 3.90 L (4.20-5.50) X10*6/uL Hgb 11.4 L (12.0-16.0) g/dl Hct 35.4 L (37.0-47.0) % MCV 90.8 (80.0-98.0) fL MCH 29.2 (27.0-33.0) pg MCHC 32.2 (31.0-35.0) g/dl RDW 12.6 (11.0-16.0) % Plt Count 272 (160-400) X10*3/uL MPV 11.0 (9.4-12.3) fL Immature Gran % (Auto) 0.1 (0.0-0.4) % Neut % (Auto) 51.4 (45-73) % Lymph % (Auto) 39.2 (20-40) % [place] % (Auto) 7.1 (2-11) % Eos % (Auto) 1.9 (0-4) % Baso % (Auto) 0.3 (0-2) % Lymph # (Auto) 3.0 (1.2-4.9) X10*3/uL [place] # (Auto) 0.6 (0.1-1.2) X10*3/uL Eos # (Auto) 0.2 (0.0-0.4) X10*3/uL Baso # (Auto) 0.0 (0.0-0.2) X10*3/uL Abs Immat Gran (auto) 0.01 (0.00-0.03) X10*3/uL Absolute Neuts (auto) 4.0 (2.0-8.3) x10*3/uL Absolute Nucleated RBC 0.000 (0.0-0.012) X10*3/uL Nucleated RBC % (auto) 0.0 (0.0-0.2) /100WBC Sodium 140 (135-145) mmol/L Potassium 4.3 (3.3-5.1) mmol/L Chloride 106 (96-108) mmol/L Carbon Dioxide 28 (22-29) mmol/L Anion Gap 10 L (12-20) BUN 14 (9-16) mg/dL Creatinine 0.74 (0.5-1.4) mg/dL Estim Creat Clear Calc 119.6 Estimated GFR > 60 Random Glucose 94 (60-115) mg/dL Calcium 9.6 (8.4-10.2) mg/dL Urine Color YELLOW Urine Appearance CLEAR Urine pH 5.5 (5.0-8.0) Ur Specific [place] >= 1.030 H (1.005-1.025) Urine Protein NEG (NEG-TRACE) MG/DL Urine Glucose (UA) NEG (NEG) MG/DL Urine Ketones NEG (NEG) MG/DL Urine Blood NEG (NEG) Urine Nitrite NEG (NEG) Ur Leukocyte Esterase NEG (NEG) Urine Test (NEGATIVE) 03/04/22 Range/Units 20:31 WBC (4.8-10.8) X10*3/uL RBC (4.20-5.50) X10*6/uL Hgb (12.0-16.0) g/dl Hct (37.0-47.0) % MCV (80.0-98.0) fL MCH (27.0-33.0) pg MCHC (31.0-35.0) g/dl RDW (11.0-16.0) % Plt Count (160-400) X10*3/uL MPV (9.4-12.3) fL Immature Gran % (Auto) (0.0-0.4) % Neut % (Auto) (45-73) % Lymph % (Auto) (20-40) % [place] % (Auto) (2-11) % Eos % (Auto) (0-4) % Baso % (Auto) (0-2) % Lymph # (Auto) (1.2-4.9) X10*3/uL [place] # (Auto) (0.1-1.2) X10*3/uL Eos # (Auto) (0.0-0.4) X10*3/uL Baso # (Auto) (0.0-0.2) X10*3/uL Abs Immat Gran (auto) (0.00-0.03) X10*3/uL Absolute Neuts (auto) (2.0-8.3) x10*3/uL Absolute Nucleated RBC (0.0-0.012) X10*3/uL Nucleated RBC % (auto) (0.0-0.2) /100WBC Sodium (135-145) mmol/L Potassium (3.3-5.1) mmol/L Chloride (96-108) mmol/L Carbon Dioxide (22-29) mmol/L Anion Gap (12-20) BUN (9-16) mg/dL Creatinine (0.5-1.4) mg/dL Estim Creat Clear Calc Estimated GFR Random Glucose (60-115) mg/dL Calcium (8.4-10.2) mg/dL Urine Color Urine Appearance Urine pH (5.0-8.0) Ur Specific [place] (1.005-1.025) Urine Protein (NEG-TRACE) MG/DL Urine Glucose (UA) (NEG) MG/DL Urine Ketones (NEG) MG/DL Urine Blood (NEG) Urine Nitrite (NEG) Ur Leukocyte Esterase (NEG) Urine Test NEGATIVE (NEGATIVE) Discharge Plan Discharge Clinical Impression: Abdominal pain Patient Disposition: Home, Self-Care Instructions: Abdominal Pain (ED) Additional Instructions: 1. Recommend [id number] Tylenol/ibuprofen as needed for pain control. 2. Follow-up with your primary care provider for re-evaluation further outpatient management. Return to the ER for worsening symptoms. Prescriptions: No Action cyclobenzaprine 10 mg tablet 10 mg PO TID PRN (Reason: muscle spasm) Qty: 14 0RF metronidazole [Flagyl] 500 mg tablet 500 mg PO Q12H 7 Days Qty: 14 0RF ibuprofen 600 mg tablet 600 mg PO Q6H PRN (Reason: pain) Qty: 60 0RF pyridoxine (vitamin B6) 100 mg tablet 100 mg PO DAILY 90 Days Qty: 90 1RF
[2022-03-05] MEDS: Acetaminophen 325 MG TABLET 975 MG PO (00:23)
[2022-03-05] MEDS: Ketorolac Tromethamine 15 MG/ML VIAL IM (00:23)
== END 2022-03-05 03:57 | disposition home or self-care (01) ==
PROVIDERS: Emergency Provider Student in an Organized Health Care Education/Training Program
DX: R10.9 Unspecified abdominal pain (principal); N94.89 Other specified conditions associated with female genital organs and menstrual cycle; M54.50 Low back pain, unspecified; Z79.899 Other long term (current) drug therapy
CPT/HCPCS: 36415; 74176; 76830; 76856; 80048; 81003; 81025; 85025; 93975; 96372; 99284; J1885

== ENCOUNTER 2022-06-12 18:08 | Outpatient (REF) | payer MEDICAID, SELFPAY ==
[2022-06-13 12:05] LABS: CT PCR NOT DETECTED (Not Detect.); NG PCR NOT DETECTED (Not Detect.)
== END 2022-06-12 18:09 | disposition home or self-care (01) ==
LOC: HO.LNP 18:08
PROVIDERS: Visit Provider Physician Assistant
DX: N89.8 Other specified noninflammatory disorders of vagina (principal); N39.0 Urinary tract infection, site not specified
CPT/HCPCS: 87491; 87591

== ENCOUNTER 2023-06-26 15:51 | Outpatient (REF) | payer MEDICAID, SELFPAY ==
--- NOTE | ~2023-06-26 | US_ITS ---
EXAMINATION: US RETROPERITONEAL LIMITED (RENAL ONLY) CLINICAL INFORMATION: Calculus of kidney/right flank pain. COMPARISON: CT abdomen and pelvis 03/05/2022. Renal ultrasound 07/18/2020. Ultrasound abdomen complete 04/26/2020. X-ray KUB 08/03/2017. TECHNIQUE: Real-time imaging of the kidneys. FINDINGS: RIGHT KIDNEY: 10.1 x 5.4 x 5.9 cm (SAG x AP x TRV). The kidney is normal in size, and contour. There is mild caliectasis. Renal pyramids appear echogenic questionable for medullary sponge kidney. No renal stone or mass. LEFT KIDNEY: 11.4 x 5.4 x 4.7 cm (SAG x AP x TRV). The kidney is normal in size, and contour. There is mild caliectasis. Renal pyramids appear echogenic questionable for medullary sponge kidney. No renal stone or mass. US/US renal BI IMPRESSION: Mild caliectasis and question medullary sponge kidney. No stone or hydronephrosis seen..
== END 2023-06-26 15:52 | disposition home or self-care (01) ==
LOC: HO.US 15:51
PROVIDERS: Visit Provider Family Medicine
DX: N20.0 Calculus of kidney (principal)
CPT/HCPCS: 76775

== ENCOUNTER 2023-07-18 17:12 | Emergency (ER) | payer MEDICAID, SELFPAY ==
--- NOTE | ~2023-07-18 | US_ITS ---
EXAMINATION: US RETROPERITONEAL LIMITED (RENAL ONLY) CLINICAL INFORMATION: Right costovertebral (CVA) tenderness. Dysuria. COMPARISON: None available. TECHNIQUE: Bilateral renal ultrasound performed. FINDINGS: RIGHT KIDNEY: 10.1 x 4.9 x 4.8 cm (SAG x AP x TRV). The kidney is normal in size, and contour. Renal cortical thickness is normal. The right renal pyramids are echogenic. There is a 4 mm apparent calculus midpole right kidney. There is no hydronephrosis. LEFT KIDNEY: 10 x 5 x 4.3 cm (SAG x AP x TRV). The kidney is normal in size, and contour. Renal cortical thickness is normal. The renal pyramids are echogenic. No calculi or focal parenchymal lesions. No hydronephrosis. US/US renal BI IMPRESSION: 1. 4 mm nonobstructing calculus in the midpole of right kidney. 2. There is no hydronephrosis. 3. Echogenic renal pyramids possibly early medullary sponge kidney.
[2023-07-18 17:47] VITALS: BP 120/70; PULSE 94; RESP 17; TEMP 36.9; O2SAT 100; BMI 30.3
--- NOTE | 2023-07-18 17:48 | ED_ITS ---
HPI - General Adult General Chief complaint: General Medical Stated complaint: kidney pain, fever, chills Time Seen by Provider: 07/18/23 18:56 Source: patient Mode of arrival: ambulatory Limitations: no limitations History of Present Illness HPI narrative: Patient comes to the emergency room complaining of 1 month of intermittent right-sided flank pain. However, over last 2 days, the patient has been constant, intermittently getting worse. Patient states that she has history of kidney stones and had lithotripsy. Patient is for chills patient complaining of frequency without dysuria Related Data Previous Rx's Medication Instructions Recorded cyclobenzaprine 10 mg tablet 10 mg PO TID PRN muscle spasm #14 01/22/21 tabs ibuprofen 600 mg tablet 600 mg PO Q6H PRN pain #60 tabs 07/30/21 metronidazole 500 mg tablet 500 mg PO Q12H 7 days #14 tabs 07/30/21 (Flagyl) pyridoxine (vitamin B6) 100 mg 100 mg PO DAILY 90 days #90 tabs 09/15/21 tablet ketorolac 10 mg tablet 10 mg PO TID PRN pain #10 tabs 07/18/23 ondansetron HCl 4 mg tablet 4 mg PO Q6H PRN nausea and 07/18/23 vomiting #14 tabs tamsulosin 0.4 mg capsule 0.4 mg PO DAILY #10 caps 07/18/23 tramadol 50 mg tablet 50 mg PO BID PRN pain #7 tabs 07/18/23 Allergies Allergy/AdvReac Type Severity Reaction Status Date / Time No Known Allergies Allergy Verified 06/12/22 15:33 [No Known Allergies*] Review of Systems Review of Systems: Constitutional : No Weight loss, No Fever, No Chills, No Night Sweats, No Fatigue, No Malaise ENT/Mouth : No Hearing loss, No Ear Pain, No Nasal Congestion, No Sinus Pain, No Hoarseness, No sore throat, No Rhinorrhea, No Swallowing Difficulty Eyes: No Eye Pain, No Swelling, No Redness, No Foreign Body, No Discharge, No Vision Changes Cardiovascular : No Chest Pain, No SOB, No Dyspnea on Exertion, No Orthopnea, No Edema, No Palpitations Respiratory : No Cough, No Sputum, No Wheezing, No Smoke Exposure, No Dyspnea Gastrointestinal : No Nausea, No Vomiting, No Diarrhea, No Constipation, No abd ominal Pain, No Hematochezia, No Melena Genitourinary : no irregular bleeding, No Dysuria, complaining of Urinary Frequency, No Hematuria, No Urinary Incontinence, No Urgency, complaining of right-sided Flank Pain, No Urinary Flow Changes, No Hesitancy Musculoskeletal : No joint pain, No Myalgias, No Joint Swelling Skin : No Skin Lesions, No rash Neuro : No Weakness, No Numbness, No Paresthesias, No Loss of Consciousness, No Dizziness, No Headache Psych : No Anxiety/Panic, No Depression, No SI/HI/AH/VH, No Social Issues, Heme/Lymph: No Bruising, No Bleeding,No Lymphadenopathy Endocrine : No Polyuria, No Polydipsia, No Temperature Intolerance [facility] Past Medical History Medical History Asthma Kidney stone UTI (urinary tract infection) Social History Social History Alcohol intake: unknown Patient Tobacco Use Status: Never used Tobacco Substance Use Type: Marijuana Advance Directives: No Advance Directives Information Provided: No Patient : No Physical Exam ED Vital Signs: Vital Signs - 24 hr 07/18/23 17:47 07/18/23 18:40 07/18/23 20:24 Temperature 98.4 F Pulse Rate 94 85 76 Respiratory Rate 17 15 16 Blood Pressure 120/70 113/68 130/82 Pulse Oximetry 100 99 98 Oxygen Delivery Method Room Air Room Air BMI result Body Mass Index 30.3 Const Other: Appearance: Alert. Oriented X3. Patient also uncomfortable Eyes: Pupils equal, round and reactive to light. ENT: Pharynx normal. Neck: Normal inspection. Neck supple. No lymph nodes noted. No crepitus CVS: Normal heart rate and rhythm. Pulses normal. Normal S1 and S2 Respiratory: No respiratory distress. Breath sounds normal. No Wheezing. No rales Abdomen: Soft and nontender. No rigidity. No distention. Positive right CVA tenderness Skin: Skin warm and dry. Normal skin color. Normal skin turgor. Extremities: No lower extremity edema. No Lacerations. No Rash Neuro: Oriented X 3. No motor deficit. No sensory deficit. Moving all extremities. No slurred speech. CN 2 through 12 grossly intact Psych: calm, cooperative, normal affect Course Course Course Narrative: RME: 23yo F w/PMHx asthma, renal stones, c/o chills, nausea, myalgias, body aches, dysuria & R CVAT x1 months. +urinary frequency. denies hematuria, vomiting, vaginal bleeding/d/c Labs, UA, Renal US ordered Full HPI, ROS and PE to be performed by primary ED provider. Medications Administered Discontinued Medications Generic Name Dose Route Start Last Admin Trade Name Freq PRN Reason Stop Dose Admin Sodium Chloride 1,000 mls @ 999 mls/hr 07/18/23 19:15 07/18/23 19:51 Ns IVCONT 07/18/23 20:15 999 mls/hr .Q1H1M ONE Administration Ketorolac Tromethamine 30 mg 07/18/23 19:15 07/18/23 19:51 Ketorolac Tromethamine 30 Mg/Ml Vial IVPUSH 07/18/23 19:16 30 mg ONCE ONE Administration Ondansetron HCl 4 mg 07/18/23 19:15 07/18/23 19:51 Ondansetron Hcl 4 Mg/2 Ml Vial IVPUSH 07/18/23 19:16 4 mg ONCE ONE Administration Medical Decision Making Medical Decision Making MDM Narrative: My interpretation of labs, patient's white blood cell count 10.9, likely reactive leukocytosis. Urinalysis negative for UTI, there is blood in the urine, likely from ureterolithiasis, patient denies current menstruation -patient being given IV fluids, Zofran, Toradol - ultrasound result: No ureterolithiasis, there is a 4 mm nonobstructing calculus in the midpole of the right kidney, no hydronephrosis -patient feeling better after Toradol, patient requesting 1 more dose of pain medication but overall feeling better -discussed with the patient that likely she already passed a kidney stone that is no longer visible on ultrasound Differential Diagnosis Differential Diagnoses: The differential diagnosis associated with the presentation includes (Nephrolithiasis, ureterolithiasis, renal colic, pyelonephritis) Admission/Observation Consideration of admission/observation: Escalation of care including admission /observation considered (Patient was in significant pain when she came in, admission was considered) Lab Data MDM Lab Attestation statement: I reviewed the patient's lab results. 07/18/23 17:58 07/18/23 17:58 Labs: Lab Results 07/18/23 07/18/23 07/18/23 Range/Units 17:58 17:58 17:58 WBC 10.9 H (4.8-10.8) X10*3/uL RBC 4.32 (4.20-5.50) X10*6/uL Hgb 13.0 (12.0-16.0) g/dl Hct 39.0 (37.0-47.0) % MCV 90.3 (80.0-98.0) fL MCH 30.1 (27.0-33.0) pg MCHC 33.3 (31.0-35.0) g/dl RDW 12.9 (11.0-16.0) % Plt Count 228 (160-400) X10*3/uL MPV 11.2 (9.4-12.3) fL Immature Gran % (Auto) 0.4 (0.0-0.4) % Neut % (Auto) 82.1 H (45-73) % Lymph % (Auto) 10.7 L (20-40) % [place] % (Auto) 6.2 (2-11) % Eos % (Auto) 0.4 (0-4) % Baso % (Auto) 0.2 (0-2) % Lymph # (Auto) 1.2 (1.2-4.9) X10*3/uL [place] # (Auto) 0.7 (0.1-1.2) X10*3/uL Eos # (Auto) 0.0 (0.0-0.4) X10*3/uL Baso # (Auto) 0.0 (0.0-0.2) X10*3/uL Abs Immat Gran (auto) 0.04 H (0.00-0.03) X10*3/uL Absolute Neuts (auto) 8.9 H (2.0-8.3) x10*3/uL Absolute Nucleated RBC 0.000 (0.0-0.012) X10*3/uL Nucleated RBC % (auto) 0.0 (0.0-0.2) /100WBC Sodium 137 (135-145) mmol/L Potassium 3.9 (3.3-5.1) mmol/L Chloride 107 (96-108) mmol/L Carbon Dioxide 22 (22-29) mmol/L Anion Gap 12 (12-20) BUN 11 (9-16) mg/dL Creatinine 0.76 (0.5-1.4) mg/dL Estim Creat Clear Calc 111.6 Estimated GFR > 60 Random Glucose 121 H (60-115) mg/dL Lactic Acid (0.5-2.0) mmol/L Calcium 9.8 (8.4-10.2) mg/dL Total Bilirubin 0.6 (0.0-1.0) mg/dL Direct Bilirubin 0.2 (0.0-0.5) mg/dL AST 18 (5-31) U/L ALT 12 (0-31) U/L Alkaline Phosphatase 68 (39-117) U/L Total Protein 8.3 H (6.5-8.0) g/dL Albumin 4.4 (3.5-5.0) g/dL Lipase 10 (8-78) U/L Urine Color Dark Yellow Urine Appearance Clear Urine pH 5.5 (5.0-9.0) Ur Specific [place] >= 1.030 H (1.005-1.025) Urine Protein Trace (Neg-Trace) mg/dL Urine Glucose (UA) Negative (Negative) mg/dL Urine Ketones Trace (Negative) mg/dL Urine Blood Trace H (Negative) Urine Nitrite Negative (Negative) Ur Leukocyte Esterase Negative (Negative) Urine RBC 3-5 H (0-2) /HPF Urine WBC 0-5 (0-5) /HPF Ur Squamous Epith Cells 3-5 (0-2) /HPF Urine Bacteria Trace (None Seen) Hyaline Casts 3-5 (0-2) /LPF Urine Test (NEGATIVE) 07/18/23 07/18/23 Range/Units 17:58 19:29 WBC (4.8-10.8) X10*3/uL RBC (4.20-5.50) X10*6/uL Hgb (12.0-16.0) g/dl Hct (37.0-47.0) % MCV (80.0-98.0) fL MCH (27.0-33.0) pg MCHC (31.0-35.0) g/dl RDW (11.0-16.0) % Plt Count (160-400) X10*3/uL MPV (9.4-12.3) fL Immature Gran % (Auto) (0.0-0.4) % Neut % (Auto) (45-73) % Lymph % (Auto) (20-40) % [place] % (Auto) (2-11) % Eos % (Auto) (0-4) % Baso % (Auto) (0-2) % Lymph # (Auto) (1.2-4.9) X10*3/uL [place] # (Auto) (0.1-1.2) X10*3/uL Eos # (Auto) (0.0-0.4) X10*3/uL Baso # (Auto) (0.0-0.2) X10*3/uL Abs Immat Gran (auto) (0.00-0.03) X10*3/uL Absolute Neuts (auto) (2.0-8.3) x10*3/uL Absolute Nucleated RBC (0.0-0.012) X10*3/uL Nucleated RBC % (auto) (0.0-0.2) /100WBC Sodium (135-145) mmol/L Potassium (3.3-5.1) mmol/L Chloride (96-108) mmol/L Carbon Dioxide (22-29) mmol/L Anion Gap (12-20) BUN (9-16) mg/dL Creatinine (0.5-1.4) mg/dL Estim Creat Clear Calc Estimated GFR Random Glucose (60-115) mg/dL Lactic Acid 0.6 (0.5-2.0) mmol/L Calcium (8.4-10.2) mg/dL Total Bilirubin (0.0-1.0) mg/dL Direct Bilirubin (0.0-0.5) mg/dL AST (5-31) U/L ALT (0-31) U/L Alkaline Phosphatase (39-117) U/L Total Protein (6.5-8.0) g/dL Albumin (3.5-5.0) g/dL Lipase (8-78) U/L Urine Color Urine Appearance Urine pH (5.0-9.0) Ur Specific [place] (1.005-1.025) Urine Protein (Neg-Trace) mg/dL Urine Glucose (UA) (Negative) mg/dL Urine Ketones (Negative) mg/dL Urine Blood (Negative) Urine Nitrite (Negative) Ur Leukocyte Esterase (Negative) Urine RBC (0-2) /HPF Urine WBC (0-5) /HPF Ur Squamous Epith Cells (0-2) /HPF Urine Bacteria (None Seen) Hyaline Casts (0-2) /LPF Urine Test NEGATIVE (NEGATIVE) Radiology Impression Discussion of test interpretation with radiology: I have reviewed the radiologist's reading. Radiologist Impression: FINDINGS: RIGHT KIDNEY: 10.1 x 4.9 x 4.8 cm (SAG x AP x TRV). The kidney is normal in size, and contour. Renal cortical thickness is normal. The right renal pyramids are echogenic. There is a 4 mm apparent calculus midpole right kidney. There is no hydronephrosis. LEFT KIDNEY: 10 x 5 x 4.3 cm (SAG x AP x TRV). The kidney is normal in size, and contour. Renal cortical thickness is normal. The renal pyramids are echogenic. No calculi or focal parenchymal lesions. No hydronephrosis. US/US renal BI IMPRESSION: 1.? 4 mm nonobstructing calculus in the midpole of right kidney. ? 2. There is no hydronephrosis. ? 3. Echogenic renal pyramids possibly early medullary sponge kidney. Critical Care Time Critical Care Time Critical Care Time: Yes Total Critical Care Time: 45 Attestation: I have personally provided critical care time. Time includes review of lab data, radiology results, discussion with consultants, and monitoring for potential decompensation. Intervention performed as documented. Discharge Plan Discharge Clinical Impression: Flank pain Patient Disposition: Home, Self-Care Instructions: Flank Pain (ED) Additional Instructions: Please follow-up with your primary care physician tomorrow. If you have any worsening or new symptoms, please return to the emergency room or call 911 Prescriptions: New ketorolac 10 mg tablet 10 mg PO TID PRN (Reason: pain) Qty: 10 0RF ondansetron HCl 4 mg tablet 4 mg PO Q6H PRN (Reason: nausea and vomiting) Qty: 14 0RF tamsulosin 0.4 mg capsule 0.4 mg PO DAILY Qty: 10 0RF tramadol 50 mg tablet 50 mg PO BID PRN (Reason: pain) Qty: 7 0RF No Action cyclobenzaprine 10 mg tablet 10 mg PO TID PRN (Reason: muscle spasm) Qty: 14 0RF metronidazole [Flagyl] 500 mg tablet 500 mg PO Q12H 7 Days Qty: 14 0RF ibuprofen 600 mg tablet 600 mg PO Q6H PRN (Reason: pain) Qty: 60 0RF pyridoxine (vitamin B6) 100 mg tablet 100 mg PO DAILY 90 Days Qty: 90 1RF
[2023-07-18 18:03] LABS: MANUAL DIFF FLAG NO
[2023-07-18 18:14] LABS: Appearance Urine Clear; Color Urine Dark Yellow; Glucose Urine UA Negative (Negative); Leukocyte Esterase Urine Negative (Negative); Nitrite Urine Negative (Negative); PH 5.5 (5.0-9.0); Specific Gravity - Urine >= 1.030 (1.005-1.025); UMIC TRIGGER UACC YES; Urine Blood Trace (Negative); Urine Ketones Trace mg/dL (Negative); Urine Protein Trace mg/dL (Neg-Trace)
[2023-07-18 18:18] LABS: Basophils Percent Auto 0.2 % (0-2); Eosinophils Percent Auto 0.4 % (0-4); Imm Gran Abs Auto 0.04 X10*3/uL (0.00-0.03); Imm Gran Pct Auto 0.4 % (0.0-0.4); Lymphocytes Absolute Auto 1.2 X10*3/uL (1.2-4.9); Lymphocytes Percent Auto 10.7 % (20-40); Mean Corpuscular HGB Conc 33.3 g/dl (31.0-35.0); Mean Corpuscular Hemoglobin 30.1 pg (27.0-33.0); Mean Corpuscular Volume 90.3 fL (80.0-98.0); Mean Platelet Volume 11.2 fL (9.4-12.3); Monocytes Absolute Auto 0.7 X10*3/uL (0.1-1.2); Monocytes Percent Auto 6.2 % (2-11); Neutrophils Absolute Auto 8.9 x10*3/uL (2.0-8.3); Neutrophils Percent Auto 82.1 % (45-73); Platelet Count 228 X10*3/uL (160-400); Red Blood Count 4.32 X10*6/uL (4.20-5.50); Red Cell Distribution Width 12.9 % (11.0-16.0); White Blood Count 10.9 X10*3/uL (4.8-10.8)
[2023-07-18 18:19] LABS: UPreg QC Valid YES; Urine Pregnancy NEGATIVE (NEGATIVE)
[2023-07-18 18:26] LABS: Bacteria Urine Trace (None Seen); WBC Urine 0-5 /HPF (0-5)
[2023-07-18 18:36] LABS: Alanine Aminotransferase 12 U/L (0-31); Albumin Level 4.4 g/dL (3.5-5.0); Alkaline Phosphatase 68 U/L (39-117); Anion Gap 12 (12-20); Aspartate Amino Transferase 18 U/L (5-31); Bilirubin Direct 0.2 mg/dL (0.0-0.5); Bilirubin Total 0.6 mg/dL (0.0-1.0); Blood Urea Nitrogen 11 mg/dL (9-16); Calcium 9.8 mg/dL (8.4-10.2); Carbon Dioxide 22 mmol/L (22-29); Chloride 107 mmol/L (96-108); Creatinine Clr Calc Pharmacy 111.6; Estimated Glomerular Filt Rate > 60; Glucose Random 121 mg/dL (60-115); Lipase 10 U/L (8-78); Potassium 3.9 mmol/L (3.3-5.1); Sodium 137 mmol/L (135-145); Total Protein 8.3 g/dL (6.5-8.0)
[2023-07-18 18:40] VITALS: BP 113/68; PULSE 85; RESP 15; O2SAT 99
--- OUTSIDE RECORDS SUMMARY | 2023-07-18 18:45 | XMS_ITS | Continuity of Care Document ---
Author Name Unknown Organization [facility] Address [address] [place] [address]- Care Team Providers Care Knife Grinder Name Role Phone Zenia Montesinos MD Primary Care Physician [phone] Encounter [facility] Date(s): 07/07/20 - 08/06/20 [facility] [address] [place] [address]- [facility] Allergies, Adverse Reactions, Alerts No Known Medication Allergies Immunizations Not Given Vaccine Date Status Refusal Reason influenza virus vaccine, inactivated 12/25/13 Not Given Parent Or Guardian Refuses Medications acetaminophen 325 mg oral tablet By Mouth, Every 6 hours, PRN Pain , Mild, Temperature greater than 101.5 F, 0 Refills, Maintenance,12/25/13 16:34:07, Tablet Start Date: 12/25/13 Status: Ordered ibuprofen 600 mg oral tablet 600 mg, 1, tablet, By Mouth, Every 6 hours, # 30 tablet, Refills 0, Tot. Refills 0, Maintenance, 10/07/19 15:15:05 EST, Print Requisition Start Date: 10/07/19 Status: Ordered Multivitamins with Folic Acid 0.8 mg oral tablet 1 tablet, By Mouth, Daily, # 100 tablet, 0 Refills, Maintenance, 04/03/15 23:46:59, Tablet Start Date: 04/03/15 Status: Ordered Problem List Condition Effective Dates Status Health Status Inform ant Teen (Confirmed) Active Social History Social History Type Response Smoking Status Never smoker entered on: 10/02/15 Sex
--- OUTSIDE RECORDS SUMMARY | 2023-07-18 18:45 | XMS_ITS | Continuity of Care Document ---
Author Name Unknown Organization [facility] Address [address] [place] [id number]- Care Team Providers Care Manufacturing Job Titles Name Role Phone Zenia Montesinos MD Primary Care Physician [phone] [place] [facility] [place] - 08/12/[address] [address]- [facility] Attending Physician: Bari Heaton CNM Admitting Physician: Bari Heaton CNM Referring Physician: Bari Heaton CNM Allergies, Adverse Reactions, Alerts No Known Medication [...]
[2023-07-18 19:50] LABS: Lactic Acid 0.6 mmol/L (0.5-2.0)
[2023-07-18] MEDS: 0.9 % Sodium Chloride 1,000 ML 999 ML IVCONT (19:51)
[2023-07-18] MEDS: Ketorolac Tromethamine 30 MG/ML VIAL IVPUSH (19:51)
[2023-07-18] MEDS: ondansetron HCL 4 MG/2 ML VIAL IVPUSH (19:51)
[2023-07-18 20:24] VITALS: BP 130/82; PULSE 76; RESP 16; O2SAT 98
== END 2023-07-18 21:24 | disposition home or self-care (01) ==
PROVIDERS: Physician Assistant; Emergency Provider Emergency Medicine
DX: R10.9 Unspecified abdominal pain (principal); N20.0 Calculus of kidney; Z79.899 Other long term (current) drug therapy
CPT/HCPCS: 36415; 76775; 80048; 80076; 81001; 81025; 83605; 83690; 85025; 96361; 96374; 96375; 99284; J1885; J2405

== ENCOUNTER 2023-08-09 17:37 | Emergency (ER) | payer MEDICAID, SELFPAY | END 2023-08-09 21:42 | disposition left against medical advice (07) | LOC: HO.ED 20:25 | PROVIDERS: Emergency Provider Emergency Medicine | DX: R10.2 Pelvic and perineal pain (principal) ==

== ENCOUNTER 2023-08-11 18:01 | Emergency (ER) | payer MEDICAID, SELFPAY ==
--- NOTE | ~2023-08-11 | CT_ITS ---
EXAMINATION: CT ABDOMEN AND PELVIS WITHOUT CONTRAST CLINICAL INFORMATION: Lower abdominal pain COMPARISON: CT abdomen/pelvis 03/05/2022. TECHNIQUE: Multidetector volumetric imaging was performed from the superior aspect of the liver through the pubic symphysis. Sagittal and coronal reformatted images were obtained on the technologist's workstation. This CT examination was performed using dose optimization techniques as appropriate, variously including the following: *Automated exposure control *Adjustment of mA and/or kV according to patient size (this includes techniques or standardized protocols for targeted exams where dose is matched to indication/reason for exam; i.e. extremities or head) *Use of iterative reconstruction technique DLP: 608 mGy-cm FINDINGS: LUNG BASES: The visualized lung bases are unremarkable. LIVER, GALLBLADDER, AND BILIARY TREE: The liver is normal in size, shape, and attenuation. No focal hepatic lesion or biliary ductal dilatation is present. The gallbladder is unremarkable with no evidence of radiopaque gallstones, gallbladder wall thickening, or obvious pericholecystic inflammatory changes. PANCREAS: Unremarkable. SPLEEN: Unremarkable. ADRENAL GLANDS: Unremarkable. KIDNEYS AND URETERS: The kidneys are normal in size, shape, and attenuation. No hydronephrosis, hydroureter, or calculi seen. No perinephric stranding. BLADDER: Unremarkable. GASTROINTESTINAL TRACT: The small and large bowel are unremarkable. The appendix is unremarkable. ABDOMINAL WALL: No significant hernia is appreciated. LYMPH NODES: Normal. VASCULAR: Unremarkable. PELVIC VISCERA: Anteverted uterus. No solid adnexal masses. OSSEOUS STRUCTURES: Unremarkable. CT/CT abdomen pelvis wo IV con IMPRESSION: No acute abdominal or pelvic pathology. Fleischner guidelines were followed.
[2023-08-11 18:23] VITALS: BP 124/85; PULSE 87; RESP 18; TEMP 36.9; O2SAT 96; BMI 29.2
[2023-08-11 18:49] LABS: MANUAL DIFF FLAG NO
[2023-08-11 18:53] LABS: Appearance Urine Cloudy; Color Urine Yellow; Glucose Urine UA Negative (Negative); Leukocyte Esterase Urine Moderate (2+) (Negative); Nitrite Urine Negative (Negative); UMIC TRIGGER UACC YES; Urine Blood Moderate (2+) (Negative); Urine Ketones Trace mg/dL (Negative); Urine Protein 100 (2+) mg/dL (Neg-Trace)
[2023-08-11 19:03] LABS: Basophils Percent Auto 0.3 % (0-2); Eosinophils Absolute Auto 0.1 X10*3/uL (0.0-0.4); Eosinophils Percent Auto 0.8 % (0-4); Hematocrit 36.9 % (37.0-47.0); Hemoglobin 12.3 g/dl (12.0-16.0); Imm Gran Abs Auto 0.04 X10*3/uL (0.00-0.03); Imm Gran Pct Auto 0.3 % (0.0-0.4); Lymphocytes Absolute Auto 2.5 X10*3/uL (1.2-4.9); Lymphocytes Percent Auto 18.7 % (20-40); Mean Corpuscular HGB Conc 33.3 g/dl (31.0-35.0); Mean Corpuscular Hemoglobin 30.1 pg (27.0-33.0); Mean Corpuscular Volume 90.4 fL (80.0-98.0); Mean Platelet Volume 11.5 fL (9.4-12.3); Monocytes Absolute Auto 0.8 X10*3/uL (0.1-1.2); Monocytes Percent Auto 6.1 % (2-11); Neutrophils Absolute Auto 9.8 x10*3/uL (2.0-8.3); Neutrophils Percent Auto 73.8 % (45-73); Platelet Count 258 X10*3/uL (160-400); Red Blood Count 4.08 X10*6/uL (4.20-5.50); Red Cell Distribution Width 12.8 % (11.0-16.0); White Blood Count 13.2 X10*3/uL (4.8-10.8)
[2023-08-11 19:06] LABS: Bacteria Urine 1+ (None Seen); Hyaline Casts Urine 0-2 /LPF (0-2); RBC Urine >20 /HPF (0-2); Squamous Epithelial Cell Urine 0-2 /HPF (0-2); UACC Culture Trigger YES; WBC Urine >50 /HPF (0-5)
[2023-08-11 19:07] LABS: Alanine Aminotransferase 7 U/L (0-31); Albumin Level 4.2 g/dL (3.5-5.0); Alkaline Phosphatase 72 U/L (39-117); Anion Gap 12 (12-20); Aspartate Amino Transferase 11 U/L (5-31); Bilirubin Total 0.5 mg/dL (0.0-1.0); Blood Urea Nitrogen 12 mg/dL (9-16); Calcium 9.2 mg/dL (8.4-10.2); Carbon Dioxide 25 mmol/L (22-29); Chloride 107 mmol/L (96-108); Creatinine Clr Calc Pharmacy 100.4; Estimated Glomerular Filt Rate > 60; Glucose Random 111 mg/dL (60-115); Potassium 3.5 mmol/L (3.3-5.1); Sodium 140 mmol/L (135-145); Total Protein 7.8 g/dL (6.5-8.0)
--- NOTE | 2023-08-11 20:20 | ED.ABDPAIN ---
HPI - Abdominal Pain General Chief Complaint: Abdominal Pain Stated Complaint: blood in urine Time Seen by Provider: 08/11/23 20:00 History of Present Illness HPI narrative: Patient is a [age]-year-old female with a history of having her last menstrual period early July. Also had a short menstruation at the end of the month. It lasted only 4 days. Patient is sexually active. Was taking plain be pills after intercourse. Complaining of pain on urination. Complaining of lower abdominal pain. Complaining of pain radiating to the back. With some slight nausea. Patient from home. No coughing no congestion or upper respiratory symptoms. No abdominal surgery done in the past. Patient is from home. No vaginal discharge noted. Related Data Previous Rx's Medication Instructions Recorded cyclobenzaprine 10 mg tablet 10 mg PO TID PRN muscle spasm #14 01/22/21 tabs ibuprofen 600 mg tablet 600 mg PO Q6H PRN pain #60 tabs 07/30/21 metronidazole 500 mg tablet 500 mg PO Q12H 7 days #14 tabs 07/30/21 (Flagyl) pyridoxine (vitamin B6) 100 mg 100 mg PO DAILY 90 days #90 tabs 09/15/21 tablet ketorolac 10 mg tablet 10 mg PO TID PRN pain #10 tabs 07/18/23 ondansetron HCl 4 mg tablet 4 mg PO Q6H PRN nausea and 07/18/23 vomiting #14 tabs tamsulosin 0.4 mg capsule 0.4 mg PO DAILY #10 caps 07/18/23 tramadol 50 mg tablet 50 mg PO BID PRN pain #7 tabs 07/18/23 cefuroxime axetil 500 mg tablet 500 mg PO BID 10 days #20 tabs 08/11/23 ondansetron 4 mg disintegrating 4 mg PO TID PRN nausea and 08/11/23 tablet vomiting 5 days #10 tabs Allergies Allergy/AdvReac Type Severity Reaction Status Date / Time No Known Allergies Allergy Verified 08/11/23 18:25 [No Known Allergies*] Review of Systems Review of Systems Positive abdominal pain Yes all other systems are reviewed and are negative PMFSH Past Medical History Attestation statement: The following information was validated with the patient. Medical History UTI (urinary tract infection) Kidney stone Asthma Social History Social History Alcohol intake: never Patient Tobacco Use Status: Never used Tobacco Smoked in Last 30 Days: No Use of substances other than those prescribed or required for medical reasons: Yes Substance Use Type: Marijuana Substance Use Frequency: Daily Advance Directives: No Advance Directives Information Provided: No Patient : No Physical Exam ED Vital Signs: Vital Signs - 24 hr 08/11/23 18:23 08/11/23 20:50 Temperature 98.5 F 97.8 F Pulse Rate 87 86 Respiratory Rate 18 20 Blood Pressure 124/85 124/62 Pulse Oximetry 96 98 Oxygen Delivery Method Room Air Room Air BMI result Body Mass Index 29.2 Appearance: Alert. Oriented X3. No acute distress. Eyes: Pupils equal, round and reactive to light. ENT: Pharynx normal. Neck: Normal inspection. Neck supple. No lymph nodes noted. No crepitus CVS: Normal heart rate and rhythm. Pulses normal. Normal S1 and S2 Respiratory: No respiratory distress. Breath sounds normal. No Wheezing. No rales Abdomen: Soft and nontender. No rigidity. No distention. good BS x4 Skin: Skin warm and dry. Normal skin color. Normal skin turgor. Extremities: No lower extremity edema. Neurovascular intact to all extremities. No Lacerations. No Rash Neuro: Oriented X 3. No motor deficit. No sensory deficit. Moving all extermities. No slurred speech Medical Decision Making Medical Decision Making MDM Narrative: Well-appearing no acute distress. Patient has low abdominal pain radiating to the flank area. Urine was grossly infected. Question pyelonephritis. Cultures will be obtained. Will start Rocephin. A test is pending. Electrolytes are pending. Patient's lactate is normal. There is no evidence for sepsis. Electrolytes are unremarkable. Urine grossly infected consistent with UTI. My interpretation of the patient's CT scan of the abdomen pelvis showed no obstruction no abscess no perforation no kidney stone. Given a dose of Rocephin here in the emergency department. Patient's test was negative. Unlikely secondary to related issues. Will discharge patient home. Differential Diagnosis STD, UTI, pyelonephritis, appendicitis Lab Data 08/11/23 18:43 08/11/23 18:43 Labs: Lab Results 08/11/23 08/11/23 Range/Units 18:43 20:53 WBC 13.2 H (4.8-10.8) X10*3/uL RBC 4.08 L (4.20-5.50) X10*6/uL Hgb 12.3 (12.0-16.0) g/dl Hct 36.9 L (37.0-47.0) % MCV 90.4 (80.0-98.0) fL MCH 30.1 (27.0-33.0) pg MCHC 33.3 (31.0-35.0) g/dl RDW 12.8 (11.0-16.0) % Plt Count 258 (160-400) X10*3/uL MPV 11.5 (9.4-12.3) fL Immature Gran % (Auto) 0.3 (0.0-0.4) % Neut % (Auto) 73.8 H (45-73) % Lymph % (Auto) 18.7 L (20-40) % [place] % (Auto) 6.1 (2-11) % Eos % (Auto) 0.8 (0-4) % Baso % (Auto) 0.3 (0-2) % Lymph # (Auto) 2.5 (1.2-4.9) X10*3/uL [place] # (Auto) 0.8 (0.1-1.2) X10*3/uL Eos # (Auto) 0.1 (0.0-0.4) X10*3/uL Baso # (Auto) 0.0 (0.0-0.2) X10*3/uL Abs Immat Gran (auto) 0.04 H (0.00-0.03) X10*3/uL Absolute Neuts (auto) 9.8 H (2.0-8.3) x10*3/uL Absolute Nucleated RBC 0.000 (0.0-0.012) X10*3/uL Nucleated RBC % (auto) 0.0 (0.0-0.2) /100WBC Sodium 140 (135-145) mmol/L Potassium 3.5 (3.3-5.1) mmol/L Chloride 107 (96-108) mmol/L Carbon Dioxide 25 (22-29) mmol/L Anion Gap 12 (12-20) BUN 12 (9-16) mg/dL Creatinine 0.83 (0.5-1.4) mg/dL Estim Creat Clear Calc 100.4 Estimated GFR > 60 Random Glucose 111 (60-115) mg/dL Lactic Acid 0.7 (0.5-2.0) mmol/L Calcium 9.2 D (8.4-10.2) mg/dL Total Bilirubin 0.5 (0.0-1.0) mg/dL AST 11 (5-31) U/L ALT 7 (0-31) U/L Alkaline Phosphatase 72 (39-117) U/L Total Protein 7.8 (6.5-8.0) g/dL Albumin 4.2 (3.5-5.0) g/dL Urine Color Yellow Urine Appearance Cloudy Urine pH 6.0 (5.0-9.0) Ur Specific [place] 1.020 (1.005-1.025) Urine Protein 100 (2+) H (Neg-Trace) mg/dL Urine Glucose (UA) Negative (Negative) mg/dL Urine Ketones Trace (Negative) mg/dL Urine Blood Moderate (2+) H (Negative) Urine Nitrite Negative (Negative) Ur Leukocyte Esterase Moderate (2+) H (Negative) Urine RBC >20 H (0-2) /HPF Urine WBC >50 H (0-5) /HPF Ur Squamous Epith Cells 0-2 (0-2) /HPF Urine Bacteria 1+ (None Seen) Hyaline Casts 0-2 (0-2) /LPF Urine Yeast Present Urine Test NEGATIVE (NEGATIVE) Medications Administered Discontinued Medications Generic Name Dose Route Start Last Admin Trade Name Margaritoq PRN Reason Stop Dose Admin Ceftriaxone Sodium 1 gm/ 50 mls @ 100 mls/hr 08/11/23 20:17 08/11/23 21:37 Sodium Chloride IV 08/11/23 20:46 Infused ONCE ONE Infusion Sodium Chloride 1,000 mls @ 999 mls/hr 08/11/23 20:30 08/11/23 21:37 Ns IV 08/11/23 21:30 Infused .Q1H1M ALAYNA Infusion Discharge Plan Discharge Clinical Impression: Pyelonephritis Patient Disposition: Home, Self-Care Instructions: Kidney Infection (ED) Prescriptions: New cefuroxime axetil 500 mg tablet 500 mg PO BID 10 Days Qty: 20 0RF ondansetron 4 mg tablet,disintegrating 4 mg PO TID PRN (Reason: nausea and vomiting) 5 Days Qty: 10 0RF No Action cyclobenzaprine 10 mg tablet 10 mg PO TID PRN (Reason: muscle spasm) Qty: 14 0RF metronidazole [Flagyl] 500 mg tablet 500 mg PO Q12H 7 Days Qty: 14 0RF ibuprofen 600 mg tablet 600 mg PO Q6H PRN (Reason: pain) Qty: 60 0RF ketorolac 10 mg tablet 10 mg PO TID PRN (Reason: pain) Qty: 10 0RF ondansetron HCl 4 mg tablet 4 mg PO Q6H PRN (Reason: nausea and vomiting) Qty: 14 0RF tamsulosin 0.4 mg capsule 0.4 mg PO DAILY Qty: 10 0RF tramadol 50 mg tablet 50 mg PO BID PRN (Reason: pain) Qty: 7 0RF pyridoxine (vitamin B6) 100 mg tablet 100 mg PO DAILY 90 Days Qty: 90 1RF Referrals: Physician,Unknown J [Primary Care Provider] - 08/13/23
[2023-08-11 20:26] LABS: UPreg QC Valid YES; Urine Pregnancy NEGATIVE (NEGATIVE)
[2023-08-11] MEDS: 0.9 % Sodium Chloride 1,000 ML 999 ML IV (20:47)
[2023-08-11] MEDS: cefTRIAXone sodium 1 GM in 0.9 % Sodium Chloride 50 ML IV (20:48)
[2023-08-11 20:50] VITALS: BP 124/62; PULSE 86; RESP 20; TEMP 36.6; O2SAT 98
[2023-08-11 21:14] LABS: Lactic Acid 0.7 mmol/L (0.5-2.0)
[2023-08-12 05:29] LABS: CT PCR NOT DETECTED (Not Detect.); NG PCR NOT DETECTED (Not Detect.)
== END 2023-08-11 23:46 | disposition home or self-care (01) ==
PROVIDERS: Nurse Practitioner Family; Emergency Provider Emergency Medicine Emergency Medical Services
DX: N12 Tubulo-interstitial nephritis, not specified as acute or chronic (principal); R31.9 Hematuria, unspecified; R10.2 Pelvic and perineal pain; Z79.899 Other long term (current) drug therapy
CPT/HCPCS: 0353U; 36415; 74176; 80053; 81001; 81025; 83605; 85025; 87040; 87086; 87088; 87186; 99284; 99285; J0696

== ENCOUNTER 2023-09-18 09:54 | Outpatient (REF) | payer MEDICAID, SELFPAY ==
[2023-09-18 11:28] LABS: Estimated Average Glucose 85 mg/dL; Hemoglobin A1c % 4.6 % (<6.0)
== END 2023-09-18 09:55 | disposition home or self-care (01) ==
LOC: HO.HHCL 09:54
PROVIDERS: Visit Provider Advanced Practice Midwife
DX: R35.0 Frequency of micturition (principal); Z83.3 Family history of diabetes mellitus
CPT/HCPCS: 36415; 83036; 87086

== ENCOUNTER 2023-10-16 12:00 | Outpatient (REF) | payer MEDICAID, SELFPAY | END 2023-10-16 12:01 | disposition home or self-care (01) | LOC: HO.LNP 12:00 | PROVIDERS: Visit Provider Advanced Practice Midwife | DX: Z12.4 Encounter for screening for malignant neoplasm of cervix (principal) | CPT/HCPCS: 88142 ==

== ENCOUNTER 2023-11-10 10:56 | Emergency (ER) | payer MEDICAID, SELFPAY ==
--- NOTE | ~2023-11-10 | US_ITS ---
EXAMINATION: US OBSTETRICAL ULTRASOUND CLINICAL INFORMATION: Cramping. COMPARISON: None available. LMP: 09/02/2023. Gestational age by maternal dates is 9 weeks 6 days. Estimated date of delivery by maternal dates is 06/08/2024. TECHNIQUE: Transabdominal first trimester OB ultrasound. FINDINGS: There is a single intrauterine gestational sac with visible yolk sac, embryo/fetus, and cardiac activity. There is a small 9 x 20 x 7 mm subchorionic hemorrhage or hematoma. HR: 172 beats per minute. CRL (crown rump length): 3.2 cm (10 weeks 1 day +/- 4 days). JACQUELINE (estimated date of delivery): 06/06/2024 +/- 4 days. MATERNAL ADNEXA: The right maternal ovary measures 2.9 x 1.3 x 1.5 cm. The left maternal ovary measures 2.6 x 1.5 x 1.4 cm. There is no significant maternal adnexal mass. No maternal pelvic ascites. US/US OB <= 14 weeks fetus IMPRESSION: 1. Single intrauterine gestation with ultrasound gestational age of 10 weeks 1 day +/- 4 days. 2. Estimated date of delivery is 06/06/2024 +/- 4 days. 3. Small subchorionic hemorrhage.
--- NOTE | 2023-11-10 11:28 | ED.GENADULT ---
HPI - General Adult General Chief complaint: Dizziness Stated complaint: nausea/ Time Seen by Provider: 11/10/23 14:41 Source: patient Mode of arrival: ambulatory Limitations: no limitations History of Present Illness HPI narrative: Patient is a 23 year old assigned female at with a history of kidney stones presenting to the emergency department today with nausea, vomiting, and lightheadedness in . Patient states that she is in her first trimester of and is having some lightheadedness, nausea, and vomiting. Patient denies any dizziness, abdominal pain, fever, chills, blurry vision, double vision, loss of vision, chest pain, difficulty breathing, shortness of breath, back pain, night sweats, pain with urination, increased urinary frequency, increased urinary urgency, blood in her urine or stool, syncope or a near syncopal episode, recent trauma or falls, bowel incontinence, bladder incontinence, bowel retention, bladder retention, or any other complaints at this time. Severity: mild Relieving factors: none Exacerbating factors: none Associated symptoms: nausea/vomiting Treatments prior to arrival: none Related Data Previous Rx's Medication Instructions Recorded cyclobenzaprine 10 mg tablet 10 mg PO TID PRN muscle spasm #14 01/22/21 tabs ibuprofen 600 mg tablet 600 mg PO Q6H PRN pain #60 tabs 07/30/21 metronidazole 500 mg tablet 500 mg PO Q12H 7 days #14 tabs 07/30/21 (Flagyl) pyridoxine (vitamin B6) 100 mg 100 mg PO DAILY 90 days #90 tabs 09/15/21 tablet ketorolac 10 mg tablet 10 mg PO TID PRN pain #10 tabs 07/18/23 ondansetron HCl 4 mg tablet 4 mg PO Q6H PRN nausea and 07/18/23 vomiting #14 tabs tamsulosin 0.4 mg capsule 0.4 mg PO DAILY #10 caps 07/18/23 tramadol 50 mg tablet 50 mg PO BID PRN pain #7 tabs 07/18/23 cefuroxime axetil 500 mg tablet 500 mg PO BID 10 days #20 tabs 08/11/23 ondansetron 4 mg disintegrating 4 mg PO TID PRN nausea and 08/11/23 tablet vomiting 5 days #10 tabs ibuprofen 800 mg tablet 800 mg PO Q8H PRN pain #14 tabs 08/15/23 sulfamethoxazole 800 1 tab PO Q12H 7 days #14 tabs 08/15/23 mg-trimethoprim 160 mg tablet (Bactrim DS) Allergies Allergy/AdvReac Type Severity Reaction Status Date / Time No Known Allergies Allergy Verified 08/11/23 18:25 [No Known Allergies*] Review of Systems Constitutional: Constitutional: Reports no additional constitutional complaints, Denies chills, Denies fever(s) and Denies night sweats Eyes: Eyes: Reports no additional eye complaints, Denies blurry vision, Denies change in vision, Denies diplopia, Denies eye discharge, Denies loss of vision and Denies eye pain ENT: Denies dizziness Cardiovascular: Cardiovascular: Reports no additional cardiovascular complaints, Denies chest pain, Denies lightheadedness, Denies Loss of Consciousness and Denies dyspnea Respiratory: Respiratory: Reports no additional respiratory complaints and Denies dyspnea Gastrointestinal: Gastrointestinal: Reports no additional gastrointestinal complaints, Denies abdominal pain, Denies melena, Denies hematochezia, Denies change in bowel habits, Denies change in stool character, Reports nausea and Reports vomiting Genitourinary: Genitourinary: Denies hematuria, Denies urinary frequency, Denies dysuria, Denies urinary incontinence, Denies urinary hesitancy and Denies urinary urgency Musculoskeletal: Musculoskeletal: Reports no additional musculoskeletal complaints, Denies numbness and Denies tingling Neurologic: Denies dizziness, Denies loss of vision, Denies numbness and Denies tingling Comments: lightheadedness Psychiatric: Psychiatric: Reports no additional psychiatric complaints Endocrine: Endocrine: Reports no additional endocrine complaints Hematologic/Lymphatic: Hematologic/Lymphatic: Reports no additional hematologic/lymphatic complaints Allergic/Immunologic: Allergic/Immunologic: Reports no additional allergic/immunologic complaints [facility] Past Medical History Attestation statement: The following information was validated with the patient. Source: old records reviewed and nursing notes reviewed Medical History UTI (urinary tract infection) Kidney stone Asthma Social History Social History Alcohol intake: never Patient Tobacco Use Status: Never used Tobacco Substance Use Type: Marijuana Advance Directives: No Advance Directives Information Provided: Yes Physical Exam ED Vital Signs: Vital Signs - 24 hr 11/10/23 11:29 11/10/23 14:54 Temperature 98.7 F 98.5 F Pulse Rate 87 97 Respiratory Rate 16 18 Blood Pressure 127/74 117/71 Pulse Oximetry 96 98 Oxygen Delivery Method Room Air Room Air BMI result Body Mass Index 29.4 Const General: cooperative, no acute distress, alert and awake Nutritional Appearance: well nourished Orientation/consciousness: patient oriented x3 Limitations: no limitations HENMT Head: Yes normal to inspection and Yes atraumatic Ears: hearing grossly normal bilaterally and external ears normal General nose exam: Normal external nose present, no nasal discharge noted and no epistaxis Face and sinus: Yes normal facial exam, No abrasion and No laceration Mouth: Normal oral and palatal mucosa present, no drooling and no muffled voice Eyes General: appearance normal, both eyes and all related structures Periorbital: periorbital findings normal Eyelids: Yes eyelids normal Conjunctivae: conjunctivae normal Pupils: Equal, round and reactive pupils present EOM: EOMs intact bilaterally Neck Neck: Yes normal visual inspection, Yes full ROM and Yes no lymphadenopathy Chest Chest palpation & inspection: normal inspection of the chest Resp Effort & Inspection: normal respiratory effort and able to speak in complete sentences GI Inspection: Yes normal to inspection Palpation (GI): Soft to palpation, not firm, nontender and no guarding Neuro General: patient oriented x3 and moves all extremities Cranial nerves: Yes Equal, round and reactive pupils present Cognition (Neuro): normal cognition Motor exam (neuro): 5/5 motor strength present throughout Sensory Exam: Normal double simultaneous stimulation for sensation Coordination: [id number] test normal Extrem General: Yes normal to inspection, Yes full ROM and Yes capillary refill normal Psych Appearance: grossly normal Mental Status: mental status grossly normal Affect: normal affect Attitude: cooperative Thought process: Normal thought process present Thought content: Normal thought content present Insight: Good insight present (Psych) Course Course Course Narrative: This is a rapid medical exam. Deferred additional HPI, ROS, PE to primary provider. 23 yo female here with complaints of pelvic cramping, vomiting x several days, dizziness. No vaginal bleeding. Currently 10 weeks . JACQUELINE 06/08/24. Followed by [facility]. . Has not had US to confirm IUP. Has appt tomorrow with OB. Will obtain labs, UA, urine , viral testing. VSS Of note, her boyfriend had symptoms of vomiting/diarrhea this week Reevaluation(s) Reevaluation #1: 1245-Quant >100,000k. Ordered US Medications Administered Discontinued Medications Generic Name Dose Route Start Last Admin Trade Name Hernando PRN Reason Stop Dose Admin Ondansetron HCl 4 mg 11/10/23 11:29 11/10/23 11:36 Ondansetron Odt 4 Mg Tab.Rapdis TRANSLINGU 11/10/23 11:30 4 mg ONCE ONE Administration Medical Decision Making Medical Decision Making [facility] Narrative: Patient is a 23 year old assigned female at with a history of kidney stones presenting to the emergency department today with nausea, vomiting, and lightheadedness. Patient's physical exam was unremarkable. Patient's blood work was unremarkable. Patient's HCG was 569250 which is consistent with patient's first trimester . Patient's urine showed no acute process. Patient's OB US showed a single intrauterine gestation with an age of approximately 10 weeks and a small subchorionic hemorrhage. I explained my physical exam findings as well as all test results to the patient. I answered all questions asked by the patient. I stressed the importance of the patient being on pelvic rest until she sees her OBGYN, tomorrow, 11/11/2023. Patient received IV fluids and IV reglan which she stated helped her symptoms significantly. I stressed the importance of the patient taking her medication as prescribed. I stressed the importance of the patient following up with her primary care provider and her OBGYN, as scheduled on 11/11/2023. I stressed the importance of the patient returning to the emergency department immediately if her symptoms were to worsen or if she were to develop any dizziness, shortness of breath, difficulty breathing, chest pain, blurry vision, loss of vision, nausea, vomiting, abdominal pain, fever, chills, back pain, or any other complaints. Patient verbalized agreement and understanding with this treatment plan and discharge. Differential Diagnosis Differential Diagnoses: The differential diagnosis associated with the presentation includes Subchorionic hemorrhage First trimester Nausea Vomiting Admission/Observation Consideration of admission/observation: Escalation of care including admission/observation considered Patient would have been admitted to the hospital had her work up had any findings where hospital admission was appropriate and her clinical presentation warranted hospital admission. Lab Data [facility] Lab Attestation statement: I reviewed the patient's lab results. My interpretation of these results are in the MDM Rationale portion of this note. 11/10/23 11:39 11/10/23 11:39 Labs: Lab Results 11/10/23 11/10/23 11/10/23 Range/Units 11:39 14:22 14:58 WBC 8.2 (4.8-10.8) X10*3/uL RBC 3.96 L (4.20-5.50) X10*6/uL Hgb 12.1 (12.0-16.0) g/dl Hct 36.3 L (37.0-47.0) % MCV 91.7 (80.0-98.0) fL MCH 30.6 (27.0-33.0) pg MCHC 33.3 (31.0-35.0) g/dl RDW 12.7 (11.0-16.0) % Plt Count 248 (160-400) X10*3/uL MPV 10.9 (9.4-12.3) fL Immature Gran % (Auto) 0.4 (0.0-0.4) % Neut % (Auto) 77.1 H (45-73) % Lymph % (Auto) 14.1 L (20-40) % [place] % (Auto) 7.5 (2-11) % Eos % (Auto) 0.5 (0-4) % Baso % (Auto) 0.4 (0-2) % Lymph # (Auto) 1.2 (1.2-4.9) X10*3/uL [place] # (Auto) 0.6 (0.1-1.2) X10*3/uL Eos # (Auto) 0.0 (0.0-0.4) X10*3/uL Baso # (Auto) 0.0 (0.0-0.2) X10*3/uL Abs Immat Gran (auto) 0.03 (0.00-0.03) X10*3/uL Absolute Neuts (auto) 6.3 (2.0-8.3) x10*3/uL Absolute Nucleated RBC 0.000 (0.0-0.012) X10*3/uL Nucleated RBC % (auto) 0.0 (0.0-0.2) /100WBC Sodium 136 (135-145) mmol/L Potassium 3.8 (3.3-5.1) mmol/L Chloride 110 H (96-108) mmol/L Carbon Dioxide 18 L (22-29) mmol/L Anion Gap 12 (12-20) BUN 7 L (9-16) mg/dL Creatinine 0.60 (0.5-1.4) mg/dL Estim Creat Clear Calc 139.3 Estimated GFR > 60 POC Glucose 81 (60-115) mg/dL Random Glucose 85 (60-115) mg/dL Calcium 9.3 (8.4-10.2) mg/dL Total Bilirubin 0.5 (0.0-1.0) mg/dL Direct Bilirubin 0.2 (0.0-0.5) mg/dL AST 12 (5-31) U/L ALT 11 (0-31) U/L Alkaline Phosphatase 62 (39-117) U/L Total Protein 7.9 (6.5-8.0) g/dL Albumin 4.1 (3.5-5.0) g/dL Beta HCG, Quant [id number] mIU/mL Urine Color Dark Yellow Urine Appearance Clear Urine pH 5.5 (5.0-9.0) Ur Specific [place] >= 1.030 H (1.005-1.025) Urine Protein Negative (Neg-Trace) mg/dL Urine Glucose (UA) Negative (Negative) mg/dL Urine Ketones >=160 (Negative) mg/dL Urine Blood Trace H (Negative) Urine Nitrite Negative (Negative) Ur Leukocyte Esterase Negative (Negative) Urine RBC 0-2 (0-2) /HPF Urine WBC 0-5 (0-5) /HPF Ur Squamous Epith Cells 3-5 (0-2) /HPF Urine Bacteria None Seen (None Seen) Hyaline Casts 0-2 (0-2) /LPF Urine Test POSITIVE H (NEGATIVE) Influenza Type A (PCR) NEGATIVE (Negative) Influenza Type B (PCR) NEGATIVE (Negative) RSV RNA Qual (PCR) NEGATIVE (Negative) SARS-CoV-2 RNA (RT-PCR) NEGATIVE (Negative) Independent Interpretation I performed an independent interpretation of an: Ultrasound Interpretation: My interpretation is in agreement with the radiologist's impression of this imaging study. EXAMINATION: US OBSTETRICAL ULTRASOUND CLINICAL INFORMATION: Cramping. COMPARISON: None available. LMP: 09/02/2023. Gestational age by maternal dates is 9 weeks 6 days. Estimated date of delivery by maternal dates is 06/08/2024. TECHNIQUE: Transabdominal first trimester OB ultrasound. FINDINGS: There is a single intrauterine gestational sac with visible yolk sac, embryo/fetus, and cardiac activity. There is a small 9 x 20 x 7 mm subchorionic hemorrhage or hematoma. HR: 172 beats per minute. CRL (crown rump length): 3.2 cm (10 weeks 1 day +/- 4 days). JACQUELINE (estimated date of delivery): 06/06/2024 +/- 4 days. MATERNAL ADNEXA: The right maternal ovary measures 2.9 x 1.3 x 1.5 cm. The left maternal ovary measures 2.6 x 1.5 x 1.4 cm. There is no significant maternal adnexal mass. No maternal pelvic ascites. US/US OB <= 14 weeks fetus IMPRESSION: 1. Single intrauterine gestation with ultrasound gestational age of 10 weeks 1 day +/- 4 days. 2. Estimated date of delivery is 06/06/2024 +/- 4 days. 3. Small subchorionic hemorrhage. Dictated By: Evon Franks MD Signed By: Electronically signed by Evon Franks MD 11/10/23 0257 Radiology Impression Discussion of test interpretation with radiology: I have reviewed the radiologist's reading. Discharge Plan Discharge Clinical Impression: , Subchorionic hemorrhage Patient Disposition: Home, Self-Care Instructions: (ED), Subchorionic Hemorrhage (ED), Pelvic Rest (ED) Additional Instructions: YOU ARE ON PELVIC REST UNTIL YOUR OBGYN SAYS OTHERWISE. Follow up with your primary care provider and your OBGYN as scheduled, tomorrow, 11/11/2023. Return to the emergency department immediately if your symptoms worsen or if you develop any dizziness, shortness of breath, difficulty breathing, chest pain, blurry vision, loss of vision, nausea, vomiting, abdominal pain, fever, chills, back pain, or any other complaints. Prescriptions: No Action cyclobenzaprine 10 mg tablet 10 mg PO TID PRN (Reason: muscle spasm) Qty: 14 0RF metronidazole [Flagyl] 500 mg tablet 500 mg PO Q12H 7 Days Qty: 14 0RF ibuprofen 600 mg tablet 600 mg PO Q6H PRN (Reason: pain) Qty: 60 0RF ketorolac 10 mg tablet 10 mg PO TID PRN (Reason: pain) Qty: 10 0RF ondansetron HCl 4 mg tablet 4 mg PO Q6H PRN (Reason: nausea and vomiting) Qty: 14 0RF tamsulosin 0.4 mg capsule 0.4 mg PO DAILY Qty: 10 0RF tramadol 50 mg tablet 50 mg PO BID PRN (Reason: pain) Qty: 7 0RF cefuroxime axetil 500 mg tablet 500 mg PO BID 10 Days Qty: 20 0RF ondansetron 4 mg tablet,disintegrating 4 mg PO TID PRN (Reason: nausea and vomiting) 5 Days Qty: 10 0RF ibuprofen 800 mg tablet 800 mg PO Q8H PRN (Reason: pain) Qty: 14 0RF sulfamethoxazole-trimethoprim [Bactrim DS] 800-160 mg tablet 1 tab PO Q12H 7 Days Qty: 14 0RF pyridoxine (vitamin B6) 100 mg tablet 100 mg PO DAILY 90 Days Qty: 90 1RF Referrals: [facility] [Primary Care Provider] - Print Language: Chinese
[2023-11-10 11:29] VITALS: BP 127/74; PULSE 87; RESP 16; TEMP 37.1; O2SAT 96; BMI 29.4
[2023-11-10] MEDS: Ondansetron ODT 4 MG TAB.RAPDIS TRANSLINGU (11:36)
[2023-11-10 11:44] LABS: MANUAL DIFF FLAG NO
[2023-11-10 11:46] LABS: Basophils Percent Auto 0.4 % (0-2); Eosinophils Percent Auto 0.5 % (0-4); Hematocrit 36.3 % (37.0-47.0); Hemoglobin 12.1 g/dl (12.0-16.0); Imm Gran Abs Auto 0.03 X10*3/uL (0.00-0.03); Imm Gran Pct Auto 0.4 % (0.0-0.4); Lymphocytes Absolute Auto 1.2 X10*3/uL (1.2-4.9); Lymphocytes Percent Auto 14.1 % (20-40); Mean Corpuscular HGB Conc 33.3 g/dl (31.0-35.0); Mean Corpuscular Hemoglobin 30.6 pg (27.0-33.0); Mean Corpuscular Volume 91.7 fL (80.0-98.0); Mean Platelet Volume 10.9 fL (9.4-12.3); Monocytes Absolute Auto 0.6 X10*3/uL (0.1-1.2); Monocytes Percent Auto 7.5 % (2-11); Neutrophils Absolute Auto 6.3 x10*3/uL (2.0-8.3); Neutrophils Percent Auto 77.1 % (45-73); Platelet Count 248 X10*3/uL (160-400); Red Blood Count 3.96 X10*6/uL (4.20-5.50); Red Cell Distribution Width 12.7 % (11.0-16.0); White Blood Count 8.2 X10*3/uL (4.8-10.8)
[2023-11-10 12:07] LABS: Alanine Aminotransferase 11 U/L (0-31); Albumin Level 4.1 g/dL (3.5-5.0); Alkaline Phosphatase 62 U/L (39-117); Anion Gap 12 (12-20); Aspartate Amino Transferase 12 U/L (5-31); Bilirubin Direct 0.2 mg/dL (0.0-0.5); Bilirubin Total 0.5 mg/dL (0.0-1.0); Blood Urea Nitrogen 7 mg/dL (9-16); Calcium 9.3 mg/dL (8.4-10.2); Carbon Dioxide 18 mmol/L (22-29); Chloride 110 mmol/L (96-108); Creatinine Clr Calc Pharmacy 139.3; Estimated Glomerular Filt Rate > 60; Glucose Random 85 mg/dL (60-115); Potassium 3.8 mmol/L (3.3-5.1); Sodium 136 mmol/L (135-145); Total Protein 7.9 g/dL (6.5-8.0)
[2023-11-10 12:21] LABS: Influenza A PCR NEGATIVE (Negative); Influenza B PCR NEGATIVE (Negative); Resp Syncy Virus RNA Qual PCR NEGATIVE (Negative); SARS COV2 PCR INHOUSE NEGATIVE (Negative)
[2023-11-10 12:25] LABS: HCG Quantitative 106903 mIU/mL
[2023-11-10 14:29] LABS: Glucose, Whole Blood 81 mg/dL (60-115)
[2023-11-10 14:54] VITALS: BP 117/71; PULSE 97; RESP 18; TEMP 36.9; O2SAT 98
[2023-11-10 15:05] LABS: Appearance Urine Clear; Color Urine Dark Yellow; Glucose Urine UA Negative (Negative); Leukocyte Esterase Urine Negative (Negative); Nitrite Urine Negative (Negative); PH 5.5 (5.0-9.0); Specific Gravity - Urine >= 1.030 (1.005-1.025); UMIC TRIGGER UACC YES; Urine Blood Trace (Negative); Urine Ketones >=160 mg/dL (Negative); Urine Protein Negative (Neg-Trace)
[2023-11-10 15:08] LABS: UPreg QC Valid YES; Urine Pregnancy POSITIVE (NEGATIVE)
[2023-11-10 15:09] LABS: Bacteria Urine None Seen (None Seen); Hyaline Casts Urine 0-2 /LPF (0-2); RBC Urine 0-2 /HPF (0-2); WBC Urine 0-5 /HPF (0-5)
[2023-11-10] MEDS: Metoclopramide HCl 10 MG/2 ML VIAL IVPUSH (15:31)
[2023-11-10] MEDS: 0.9 % Sodium Chloride 1,000 ML 999 ML IV (15:33)
== END 2023-11-10 16:45 | disposition home or self-care (01) ==
PROVIDERS: Nurse Practitioner Family; Emergency Provider Emergency Medicine Emergency Medical Services
DX: O20.9 Hemorrhage in early pregnancy, unspecified (principal); O21.9 Vomiting of pregnancy, unspecified; Z3A.10 10 weeks gestation of pregnancy; Z20.822 Contact with and (suspected) exposure to COVID-19; Z20.828 Contact with and (suspected) exposure to other viral communicable diseases
CPT/HCPCS: 0241U; 76801; 80048; 80076; 81001; 81025; 82947; 84702; 85025; 96374; 96375; 99283; 99284; J2765

== ENCOUNTER 2024-01-21 13:58 | Emergency (ER) | payer MEDICAID, SELFPAY ==
--- NOTE | ~2024-01-21 | US_ITS ---
EXAMINATION: US ABDOMEN LIMITED CLINICAL INFORMATION: Right upper quadrant pain,? Gallstones. 20 weeks 1 day COMPARISON: None available. TECHNIQUE: Real-time imaging of the gallbladder and common bile duct FINDINGS: GALLBLADDER: Normal. The gallbladder is physiologically distended without evidence of stones, sludge, polyps, wall thickening or pericholecystic fluid. No sonographic Lawrence's sign. COMMON BILE DUCT: Normal in caliber measuring 0.3 cm in diameter. US/US abdomen limited IMPRESSION: No cholelithiasis. Normal appearance of the gallbladder and common bile duct.
--- NOTE | ~2024-01-21 | US_ITS ---
EXAMINATION: US , LIMITED CLINICAL INFORMATION: Abdominal pain at 20 weeks COMPARISON: OB ultrasound 11/10/2023 TECHNIQUE: Transabdominal scanning was performed.. FINDINGS: There is a single live intrauterine with a posterior placenta and adequate amniotic fluid. movement and cardiac activity are observed. heart rate is 149 bpm. Estimated gestational age is 20 weeks 1 day with an estimated date of delivery of 06/08/2024. The cervix appears within normal limits, somewhat limited views due to shadowing. US/US OB limited IMPRESSION: Single live anterior with ultrasound gestational age of 20 weeks 1 day and estimated date of delivery of 06/08/2024. Normal-appearing placenta and cervix. Normal heart rate.
--- NOTE | ~2024-01-21 | US_ITS ---
EXAMINATION: ULTRASOUND APPENDIX CLINICAL INFORMATION: Right lower quadrant pain 20 weeks 1 day COMPARISON: None available. TECHNIQUE: Real-time ultrasound of the right lower quadrant FINDINGS: Ultrasound of the right lower quadrant in the expected location of the appendix was performed. The appendix is not seen. This does not exclude the clinical diagnosis of appendicitis. US/US appendix IMPRESSION: The appendix is not seen. This does not exclude the clinical diagnosis of appendicitis.
[2024-01-21 14:32] VITALS: BP 135/81; PULSE 90; RESP 18; TEMP 36.9; O2SAT 99; BMI 29.2
--- NOTE | 2024-01-21 14:38 | ED.GENADULT ---
HPI - General Adult General Chief complaint: Nausea/Vomiting/Diarrhea Stated complaint: 20 Wks Nausea Vomiting Time Seen by Provider: 01/21/24 22:09 Source: patient Mode of arrival: ambulatory Limitations: no limitations History of Present Illness HPI narrative: 23-year-old female about 20 weeks came in for evaluation of nausea, vomiting, multiple nonbloody watery diarrhea, abdominal pain since yesterday. No sick contacts, no exposure to bad food, no recent travel, no recent use of antibiotic. Patient declined history of intra-abdominal surgery. Stated that symptoms started 1st with vomiting then abdominal pain with vomiting the abdominal pain mostly focused mostly in the epigastric and the periumbilical area and bilateral lower abdomen. No fever, no chills, no vaginal bleeding, no vaginal discharge, no rectal bleeding. Related Data Previous Rx's Medication Instructions Recorded cyclobenzaprine 10 mg tablet 10 mg PO TID PRN muscle spasm #14 01/22/21 tabs ibuprofen 600 mg tablet 600 mg PO Q6H PRN pain #60 tabs 07/30/21 metronidazole 500 mg tablet 500 mg PO Q12H 7 days #14 tabs 07/30/21 (Flagyl) pyridoxine (vitamin B6) 100 mg 100 mg PO DAILY 90 days #90 tabs 09/15/21 tablet ketorolac 10 mg tablet 10 mg PO TID PRN pain #10 tabs 07/18/23 ondansetron HCl 4 mg tablet 4 mg PO Q6H PRN nausea and 07/18/23 vomiting #14 tabs tamsulosin 0.4 mg capsule 0.4 mg PO DAILY #10 caps 07/18/23 tramadol 50 mg tablet 50 mg PO BID PRN pain #7 tabs 07/18/23 cefuroxime axetil 500 mg tablet 500 mg PO BID 10 days #20 tabs 08/11/23 ondansetron 4 mg disintegrating 4 mg PO TID PRN nausea and 08/11/23 tablet vomiting 5 days #10 tabs ibuprofen 800 mg tablet 800 mg PO Q8H PRN pain #14 tabs 08/15/23 sulfamethoxazole 800 1 tab PO Q12H 7 days #14 tabs 08/15/23 mg-trimethoprim 160 mg tablet (Bactrim DS) Allergies Allergy/AdvReac Type Severity Reaction Status Date / Time No Known Allergies Allergy Verified 01/21/24 14:31 [No Known Allergies*] Review of Systems Review of Systems: All other systems are reviewed and are negative Constitutional: Reports as per HPI and Reports no additional constitutional complaints Eyes: Reports as per HPI and Reports no additional eye complaints Reports system reviewed and no additional complaints, except as documented Cardiovascular: Reports as per HPI and Reports no additional cardiovascular complaints Respiratory: Reports as per HPI and Reports no additional respiratory complaints Gastrointestinal: Reports as per HPI and Reports no additional gastrointestinal complaints Genitourinary: Reports no additional female genitourinary complaints Musculoskeletal: Reports no additional musculoskeletal complaints Skin/Breast: Reports system reviewed and no additional complaints, except as docu Psychiatric: Reports no additional psychiatric complaints Endocrine: Reports no additional endocrine complaints Hematologic/Lymphatic: Reports no additional hematologic/lymphatic complaints Allergic/Immunologic: Reports no additional allergic/immunologic complaints Reports system reviewed and no additional complaints, except as documented and Reports Abnormal speech present [facility] Past Medical History Medical History UTI (urinary tract infection) Kidney stone Asthma Social History Social History Alcohol intake: never Patient Tobacco Use Status: Never used Tobacco Smoked in Last 30 Days: No Use of substances other than those prescribed or required for medical reasons: No Substance Use Type: Marijuana Advance Directives: No Advance Directives Information Provided: No Patient : Yes Physical Exam ED Vital Signs: Vital Signs - 24 hr 01/21/24 14:32 01/21/24 21:31 01/21/24 22:12 Temperature 98.5 F 98.3 F Pulse Rate 90 100 87 Respiratory Rate 18 18 16 Blood Pressure 135/81 121/84 115/72 Pulse Oximetry 99 100 98 Oxygen Delivery Method Room Air Room Air Room Air 01/21/24 22:54 01/21/24 23:58 Temperature 98.3 F 99.0 F Pulse Rate 87 85 Respiratory Rate 16 16 Blood Pressure 126/74 122/71 Pulse Oximetry 98 100 Oxygen Delivery Method Room Air Room Air BMI result Body Mass Index 29.2 Vital signs have been reviewed and appear to be correct. Blood pressure elevated. Heart rate normal. Respiratory rate normal. Temperature normal. Oxygen saturation normal. Appearance: Alert. Oriented X3. No acute distress. Head: Normal external exam. Normocephalic. Atraumatic. No [place] signs noted. No raccoon eyes noted Eyes: PERRLA. EOMI. Conjunctiva and sclera normal. Eyelids normal. ENT: TM's Normal. Pharynx normal. Uvula midline. Moist mucous membranes. No trismus noted. No drooling noted. No muffled voice noted. Neck: Normal inspection. Neck supple. FROM. No adenopathy. Thyroid Normal. No meningeal signs. No neck mass noted. CVS: Normal heart rate and rhythm. Heart sound normal. No murmurs noted. Pulses normal throughout. Respiratory: No respiratory distress. Painless inspiration. Breath sounds normal. No wheezes/rales/rhonchi noted. Chest nontender. No accessory muscle usage noted or decreased air movement noted. Abdomen: Soft, enlarged uterus 1 cm under the umbilicus, tenderness mostly in the periumbilical hernia with no guarding or rebound tenderness, bilateral lower abdominal tenderness left more than right, Bowel sounds normal in all 4 quadrants. No distention noted. No organomegaly noted. No visible injury noted. Back: No CVA tenderness. Full range of motion noted. Skin: Skin warm and dry. Normal skin color. Normal skin turgor. No rashes/lesions/lacerations noted. Extremities: No lower extremity edema. Extremities exhibit normal range of motion. Extremities nontender. Neuro: Oriented X 3. Cranial nerve exam: II-XII are grossly intact No motor deficit. No sensory deficit. Reflexes normal. Course Course Course Narrative: RME: 23 yold female presents to the ED for nausea, vomitting, with upper and lower abdominal pain since last night. patient is about 20 weeks . Patient states no vaginal bleeding. labs and uS ordered. Reevaluation(s) Reevaluation #1: Received IV hydration, Pepcid, Zofran, Maalox and patient feels better, no nausea or vomiting, patient is able to tolerate p.o. intake now. Repeat abdominal exam revealed improvement of the tenderness of the periumbilical area and bilateral lower abdominal area. Ultrasound of the abdomen could not entirely rule out acute appendicitis however clinically acute appendicitis is not a favorable diagnosis especially with improvement of the patient's symptoms Time: 00:27 Medications Administered Discontinued Medications Generic Name Dose Route Start Last Admin Trade Name Freq PRN Reason Stop Dose Admin Al Hydroxide/Mg Hydroxide 30 ml 01/21/24 22:17 01/21/24 22:25 Magnesium Hydrox/Alum Hydrox 30 Ml Oral.Susp PO 01/21/24 22:18 30 ml ONCE ONE Administration Famotidine 20 mg 01/21/24 22:17 01/21/24 22:25 Famotidine/Pf 20 Mg/2 Ml Vial IVPUSH 01/21/24 22:18 20 mg ONCE ONE Administration Sodium Chloride 1,000 mls @ 999 mls/hr 01/21/24 22:17 01/21/24 23:30 Ns IV 01/21/24 23:17 Infused .Q1H1M ONE Infusion Ondansetron HCl 4 mg 01/21/24 14:35 01/21/24 14:46 Ondansetron Odt 4 Mg Tab.Rapdis TRANSLINGU 01/21/24 14:36 4 mg ONCE ONE Administration Ondansetron HCl 4 mg 01/21/24 22:17 01/21/24 22:25 Ondansetron Hcl 4 Mg/2 Ml Vial IVPUSH 01/21/24 22:18 4 mg ONCE ONE Administration Medical Decision Making Differential Diagnosis Differential Diagnoses: The differential diagnosis associated with the presentation includes (Food poisoning, gastroenteritis, dehydration, electrolyte derangement, severe anemia, viability of , gallbladder disease, acute appendicitis, ABO-Rh incompatibility.) Admission/Observation Consideration of admission/observation: Escalation of care including admission/observation considered Lab Data MDM Lab Attestation statement: I reviewed the patient's lab results. 01/21/24 14:56 01/21/24 14:56 Labs: Lab Results 01/21/24 01/21/24 Range/Units 14:54 14:56 WBC 14.2 H (4.8-10.8) X10*3/uL RBC 4.00 L (4.20-5.50) X10*6/uL Hgb 12.2 (12.0-16.0) g/dl Hct 36.1 L (37.0-47.0) % MCV 90.3 (80.0-98.0) fL MCH 30.5 (27.0-33.0) pg MCHC 33.8 (31.0-35.0) g/dl RDW 12.4 (11.0-16.0) % Plt Count 280 (160-400) X10*3/uL MPV 10.4 (9.4-12.3) fL Immature Gran % (Auto) 0.6 H (0.0-0.4) % Neut % (Auto) 87.1 H (45-73) % Lymph % (Auto) 8.4 L (20-40) % [place] % (Auto) 3.4 (2-11) % Eos % (Auto) 0.3 (0-4) % Baso % (Auto) 0.2 (0-2) % Lymph # (Auto) 1.2 (1.2-4.9) X10*3/uL [place] # (Auto) 0.5 (0.1-1.2) X10*3/uL Eos # (Auto) 0.0 (0.0-0.4) X10*3/uL Baso # (Auto) 0.0 (0.0-0.2) X10*3/uL Abs Immat Gran (auto) 0.08 H (0.00-0.03) X10*3/uL Absolute Neuts (auto) 12.4 H (2.0-8.3) x10*3/uL Absolute Nucleated RBC 0.000 (0.0-0.012) X10*3/uL Nucleated RBC % (auto) 0.0 (0.0-0.2) /100WBC PT 11.9 (11.1-13.3) SEC INR 1.0 (0.9-1.1) APTT 28.3 (26.0-36.8) SEC Sodium 138 (135-145) mmol/L Potassium 3.6 (3.3-5.1) mmol/L Chloride 109 H (96-108) mmol/L Carbon Dioxide 20 L (22-29) mmol/L Anion Gap 13 (12-20) BUN 10 (9-16) mg/dL Creatinine 0.58 (0.5-1.4) mg/dL Estim Creat Clear Calc 143.7 Estimated GFR > 60 Random Glucose 80 (60-115) mg/dL Calcium 8.9 (8.4-10.2) mg/dL Total Bilirubin 0.6 (0.0-1.0) mg/dL AST 18 (5-31) U/L ALT 14 (0-31) U/L Alkaline Phosphatase 67 (39-117) U/L Total Protein 8.0 (6.5-8.0) g/dL Albumin 3.8 (3.5-5.0) g/dL Lipase 12 (8-78) U/L Beta HCG, Quant 93772 mIU/mL Urine Color Dark Yellow Urine Appearance Cloudy Urine pH 6.0 (5.0-9.0) Ur Specific [place] >= 1.030 H (1.005-1.025) Urine Protein 100 (2+) H (Neg-Trace) mg/dL Urine Glucose (UA) Negative (Negative) mg/dL Urine Ketones 40 (Negative) mg/dL Urine Blood Negative (Negative) Urine Nitrite Negative (Negative) Ur Leukocyte Esterase Trace H (Negative) Urine RBC 0-2 (0-2) /HPF Urine WBC 0-5 (0-5) /HPF Ur Squamous Epith Cells 6-10 (0-2) /HPF Urine Bacteria 1+ (None Seen) Hyaline Casts 3-5 (0-2) /LPF Urine Test POSITIVE H (NEGATIVE) Influenza Type A (PCR) NEGATIVE (Negative) Influenza Type B (PCR) NEGATIVE (Negative) RSV RNA Qual (PCR) NEGATIVE (Negative) SARS-CoV-2 RNA (RT-PCR) NEGATIVE (Negative) Blood Type O Positive Independent Interpretation I performed an independent interpretation of an: Ultrasound (Pelvic ultrasound/abdominal ultrasound: 1 viable IUP 20 weeks and 1 day, no gallbladder disease.) Radiology Impression Discussion of test interpretation with radiology: I have reviewed the radiologist's reading. Discharge Plan Discharge Clinical Impression: Gastroenteritis Patient Disposition: Home, Self-Care Instructions: Gastroenteritis (ED) Prescriptions: No Action cyclobenzaprine 10 mg tablet 10 mg PO TID PRN (Reason: muscle spasm) Qty: 14 0RF metronidazole [Flagyl] 500 mg tablet 500 mg PO Q12H 7 Days Qty: 14 0RF ibuprofen 600 mg tablet 600 mg PO Q6H PRN (Reason: pain) Qty: 60 0RF ketorolac 10 mg tablet 10 mg PO TID PRN (Reason: pain) Qty: 10 0RF ondansetron HCl 4 mg tablet 4 mg PO Q6H PRN (Reason: nausea and vomiting) Qty: 14 0RF tamsulosin 0.4 mg capsule 0.4 mg PO DAILY Qty: 10 0RF tramadol 50 mg tablet 50 mg PO BID PRN (Reason: pain) Qty: 7 0RF cefuroxime axetil 500 mg tablet 500 mg PO BID 10 Days Qty: 20 0RF ondansetron 4 mg tablet,disintegrating 4 mg PO TID PRN (Reason: nausea and vomiting) 5 Days Qty: 10 0RF ibuprofen 800 mg tablet 800 mg PO Q8H PRN (Reason: pain) Qty: 14 0RF sulfamethoxazole-trimethoprim [Bactrim DS] 800-160 mg tablet 1 tab PO Q12H 7 Days Qty: 14 0RF pyridoxine (vitamin B6) 100 mg tablet 100 mg PO DAILY 90 Days Qty: 90 1RF Referrals: [place] [Primary Care Provider] - Interventions: ED Discharge Assessment Last Done: 01/22/24 00:37 Discharge Date/Time: 01/22/24 00:45
[2024-01-21] MEDS: Ondansetron ODT 4 MG TAB.RAPDIS TRANSLINGU (14:46)
[2024-01-21 15:07] LABS: MANUAL DIFF FLAG NO
[2024-01-21 15:10] LABS: Basophils Percent Auto 0.2 % (0-2); Eosinophils Percent Auto 0.3 % (0-4); Hematocrit 36.1 % (37.0-47.0); Hemoglobin 12.2 g/dl (12.0-16.0); Imm Gran Abs Auto 0.08 X10*3/uL (0.00-0.03); Imm Gran Pct Auto 0.6 % (0.0-0.4); Lymphocytes Absolute Auto 1.2 X10*3/uL (1.2-4.9); Lymphocytes Percent Auto 8.4 % (20-40); Mean Corpuscular HGB Conc 33.8 g/dl (31.0-35.0); Mean Corpuscular Hemoglobin 30.5 pg (27.0-33.0); Mean Corpuscular Volume 90.3 fL (80.0-98.0); Mean Platelet Volume 10.4 fL (9.4-12.3); Monocytes Absolute Auto 0.5 X10*3/uL (0.1-1.2); Monocytes Percent Auto 3.4 % (2-11); Neutrophils Absolute Auto 12.4 x10*3/uL (2.0-8.3); Neutrophils Percent Auto 87.1 % (45-73); Platelet Count 280 X10*3/uL (160-400); Red Cell Distribution Width 12.4 % (11.0-16.0); White Blood Count 14.2 X10*3/uL (4.8-10.8)
[2024-01-21 15:10] LABS: Appearance Urine Cloudy; Color Urine Dark Yellow; Glucose Urine UA Negative (Negative); Leukocyte Esterase Urine Trace (Negative); Nitrite Urine Negative (Negative); Specific Gravity - Urine >= 1.030 (1.005-1.025); UMIC TRIGGER UACC YES; Urine Blood Negative (Negative); Urine Ketones 40 mg/dL (Negative); Urine Protein 100 (2+) mg/dL (Neg-Trace)
[2024-01-21 15:11] LABS: UPreg QC Valid YES; Urine Pregnancy POSITIVE (NEGATIVE)
[2024-01-21 15:19] LABS: Prothrombin Time 11.9 SEC (11.1-13.3)
[2024-01-21 15:22] LABS: Bacteria Urine 1+ (None Seen); RBC Urine 0-2 /HPF (0-2); WBC Urine 0-5 /HPF (0-5)
[2024-01-21 15:22] LABS: Partial Thromboplastin Time 28.3 SEC (26.0-36.8)
[2024-01-21 15:30] LABS: Alanine Aminotransferase 14 U/L (0-31); Albumin Level 3.8 g/dL (3.5-5.0); Alkaline Phosphatase 67 U/L (39-117); Anion Gap 13 (12-20); Aspartate Amino Transferase 18 U/L (5-31); Bilirubin Total 0.6 mg/dL (0.0-1.0); Blood Urea Nitrogen 10 mg/dL (9-16); Calcium 8.9 mg/dL (8.4-10.2); Carbon Dioxide 20 mmol/L (22-29); Chloride 109 mmol/L (96-108); Creatinine Clr Calc Pharmacy 143.7; Estimated Glomerular Filt Rate > 60; Glucose Random 80 mg/dL (60-115); Lipase 12 U/L (8-78); Potassium 3.6 mmol/L (3.3-5.1); Sodium 138 mmol/L (135-145)
[2024-01-21 15:49] LABS: HCG Quantitative 19085 mIU/mL
[2024-01-21 15:50] LABS: Influenza A PCR NEGATIVE (Negative); Influenza B PCR NEGATIVE (Negative); Resp Syncy Virus RNA Qual PCR NEGATIVE (Negative); SARS COV2 PCR INHOUSE NEGATIVE (Negative)
[2024-01-21 21:31] VITALS: BP 121/84; PULSE 100; RESP 18; TEMP 36.8; O2SAT 100
[2024-01-21 22:12] VITALS: BP 115/72; PULSE 87; RESP 16; O2SAT 98
[2024-01-21] MEDS: Magnesium Hydrox/Alum Hydrox 30 ML ORAL.SUSP PO (22:25)
[2024-01-21] MEDS: ondansetron HCL 4 MG/2 ML VIAL IVPUSH (22:25)
[2024-01-21] MEDS: Famotidine/PF 20 MG/2 ML VIAL IVPUSH (22:25)
[2024-01-21] MEDS: 0.9 % Sodium Chloride 1,000 ML 999 ML IV (22:25)
--- NOTE | 2024-01-21 22:43 | PC.NURSE ---
Patient ~20 weeks admitted d/t increasing N/V/D since last night. Denies sick contacts at home, denies any discharge or blood. Medicated per MAR, IV fluids currently infusing. Patient resting quietly on the stretcher at this time.
[2024-01-21 22:54] VITALS: BP 126/74; PULSE 87; RESP 16; TEMP 36.8; O2SAT 98
[2024-01-21 23:58] VITALS: BP 122/71; PULSE 85; RESP 16; TEMP 37.2; O2SAT 100
--- NOTE | 2024-01-22 00:07 | MHC.EDTECH ---
Hourly rounds and vitals completed patient resting comfortably at this time and call hardy in reach
== END 2024-01-22 00:45 | disposition home or self-care (01) ==
PROVIDERS: Physician Assistant; Emergency Provider Emergency Medicine
DX: O99.612 Diseases of the digestive system complicating pregnancy, second trimester (principal); Z3A.20 20 weeks gestation of pregnancy; R10.13 Epigastric pain; K52.9 Noninfective gastroenteritis and colitis, unspecified; Z20.822 Contact with and (suspected) exposure to COVID-19; Z11.52 Encounter for screening for COVID-19; Z79.899 Other long term (current) drug therapy
CPT/HCPCS: 0241U; 76705; 76815; 80053; 81001; 81025; 83690; 84702; 85025; 85610; 85730; 86900; 86901; 96361; 96374; 96375; 99284; J2405

== ENCOUNTER 2024-08-21 17:41 | Outpatient (REF) | payer MEDICAID, SELFPAY ==
[2024-08-21 18:10] LABS: Appearance Urine Turbid; Glucose Urine UA Negative (Negative); Leukocyte Esterase Urine Trace (Negative); Nitrite Urine Negative (Negative); Specific Gravity - Urine >= 1.030 (1.005-1.025); UMIC TRIGGER UACC YES; Urine Blood Negative (Negative); Urine Ketones Trace mg/dL (Negative); Urine Protein Trace mg/dL (Neg-Trace)
[2024-08-21 18:12] LABS: Color Urine Yellow
[2024-08-21 18:13] LABS: Bacteria Urine Trace (None Seen); Hyaline Casts Urine 0-2 /LPF (0-2); RBC Urine 0-2 /HPF (0-2); WBC Urine 0-5 /HPF (0-5)
== END 2024-08-21 17:42 | disposition home or self-care (01) ==
LOC: HO.HHCLNP 17:41
PROVIDERS: Visit Provider Family Medicine
DX: N39.0 Urinary tract infection, site not specified (principal)
CPT/HCPCS: 81001

== ENCOUNTER 2024-12-24 11:28 | Outpatient (REF) | payer MEDICAID, SELFPAY ==
[2024-12-24 13:35] LABS: MANUAL DIFF FLAG NO
[2024-12-24 13:44] LABS: Basophils Percent Auto 0.5 % (0-2); Eosinophils Absolute Auto 0.1 X10*3/uL (0.0-0.4); Eosinophils Percent Auto 0.8 % (0-4); Hematocrit 36.8 % (37.0-47.0); Imm Gran Abs Auto 0.01 X10*3/uL (0.00-0.03); Imm Gran Pct Auto 0.2 % (0.0-0.4); Lymphocytes Absolute Auto 2.2 X10*3/uL (1.2-4.9); Lymphocytes Percent Auto 34.5 % (20-40); Mean Corpuscular HGB Conc 32.6 g/dl (31.0-35.0); Mean Corpuscular Hemoglobin 29.6 pg (27.0-33.0); Mean Corpuscular Volume 90.6 fL (80.0-98.0); Mean Platelet Volume 11.2 fL (9.4-12.3); Monocytes Absolute Auto 0.5 X10*3/uL (0.1-1.2); Monocytes Percent Auto 7.9 % (2-11); Neutrophils Absolute Auto 3.6 x10*3/uL (2.0-8.3); Neutrophils Percent Auto 56.1 % (45-73); Platelet Count 277 X10*3/uL (160-400); Red Blood Count 4.06 X10*6/uL (4.20-5.50); Red Cell Distribution Width 12.7 % (11.0-16.0); White Blood Count 6.4 X10*3/uL (4.8-10.8)
[2024-12-24 14:19] LABS: Alanine Aminotransferase 20 U/L (0-31); Albumin Level 4.2 g/dL (3.5-5.0); Alkaline Phosphatase 76 U/L (39-117); Anion Gap 9 (12-20); Aspartate Amino Transferase 20 U/L (5-31); Bilirubin Total 0.5 mg/dL (0.0-1.0); Blood Urea Nitrogen 9 mg/dL (9-16); Calcium 9.3 mg/dL (8.4-10.2); Carbon Dioxide 25 mmol/L (22-29); Chloride 110 mmol/L (96-108); Estimated Glomerular Filt Rate > 60; Glucose Random 97 mg/dL (60-115); Potassium 3.5 mmol/L (3.3-5.1); Sodium 140 mmol/L (135-145); TSH reflex Free T4 0.77 uIU/mL (0.32-4.0); Total Protein 8.1 g/dL (6.5-8.0)
== END 2024-12-24 11:29 | disposition home or self-care (01) ==
LOC: HO.HHCL 11:28
PROVIDERS: Visit Provider Family Medicine
DX: R42 Dizziness and giddiness (principal); R11.2 Nausea with vomiting, unspecified
CPT/HCPCS: 36415; 80053; 84443; 85025

== ENCOUNTER 2025-10-19 14:00 | Outpatient (REF) | payer MEDICAID, SELFPAY ==
--- OUTSIDE RECORDS SUMMARY | 2025-10-19 15:00 | XMS_ITS | Encounter Summary ---
Author Organization [email or web address] Address [address] [place] [address] Care Team Providers Care Qa Test Lead Name Role Phone Desi Cortés MD Primary Care Provider [phone] Reason for Visit * Reason Comments sick visit Encounter Details Date Type Department Care Team ([facility] st Contact Info) Description 10/19/2025 3:00 PM EST Office Visit [facility] [address] [place] [address] Amrita Arizmendi FNP [address] [place] [address] Vaginal discharge (Primary Dx); Vaginal itching; BV (bacterial vaginosis) Social History Tobacco Use Types Packs/Day Years Used Date Smoking Tobacco: Never Passive Smoke Exposure: Never Smokeless Tobacco: Never Tobacco Cessation:Counseling Given: Not Answered Alcohol Use Standard Drinks/Week Comments Not Currently 2 (1 standard drink = 0.6 oz pur e alcohol) Depression Answer Date Recorded Patient Health Questionnaire-9 Score 0 05/07/2023 Housing Stability Answer Date Recorded What is your housing situation today? I have miles kelly 05/26/[address] you li ve. Do you have problems with any of the following? None of the above 05/26/2024 Food Insecurity Answer Date Recorded Within the past 12 months, y ou worried that your food would run out before you got money to buy more: Never True 05/26/2024 Within the past 12 months,th e food you bought just didn't last and you didn't have enough money to get more: Never True Transportation Answer Date Recorded In the past 12 months, has l ack of transportation kept you from medical appts, meetings, work or from getting things needed for daily living? No 05/26/2024 Utilities Answer Date Recorded In the past 12 months, has t he electric, gas, oil or water company threatened to shut off services in your home? No 05/26/2024 Depression Answer Date Recorded Patient Health Questionnaire-2 Score 0 05/07/2023 Internet Access Answer Date Recorded Internet Access Q1 Yes 08/03/2024 Internet Access Q2 Not on file 08/03/2024 Comments Unknown Sex and Gender Information Value Date Recorded Sex Assigned at Female 10/01/2022 10:22 AM EDT Legal Sex Female 10:22 AM EDT Gender Identity Female 10/01/2022 10:22 AM EDT Sexual Orientation Straight 10/01/2022 10 :22 AM EDT documented as of this encounter Last Filed Vital Signs Vital Sign Reading Time Taken Comments Blood Pressure 119/66 10/19/2025 1:37 PM EST Pulse 85 10/19/2025 1:37 PM EST Temperature 36.4 C (97.6 F) 10/19/2025 1:37 PM EST Respiratory Rate 17 10/19/2025 1:37 PM EST Oxygen Saturation - - Inhaled Oxygen Concentration - - Weight 81.3 kg (179 lb 4.8 oz) 10/19/2025 1:37 P M EST Height 160 cm (5' 3 ) 10/19/2025 1:37 PM EST Body Mass Index 31.76 10/19/2025 1:37 PM EST documented in this encounter Progress Notes * JESS Wilcox - 10/19/2025 3:00 PM EST SUBJECTIVE Heidy Myers is a 25 y.o. female who presents for pelvic Pain and Urinary Symptoms. Reports - Pelvic cramps and lower abdominal pain started weeks ago - Pain radiates to the back - History of kidney stones - Mild nausea. Denies fever, vomiting, burning or painful urination - Reports holding urine Vaginal Discharge - Reports increased vaginal discharge - Denies itchiness, - Last menstrual period occurred recently, after a recent exam Review of Systems Constitutional: Negative for chills and fever. Respiratory: Negative for cough, chest tightness, shortness of breath and wheezing. Cardiovascular: Negative for chest pain and palpitations. Genitourinary: Positive for dysuria and vaginal discharge. Negative for frequency and urgency. Psychiatric/Behavioral: Negative for suicidal ideas. Allergies[1] OBJECTIVE Vitals: 10/19/25 1337 BP: 119/66 BP Location: Left arm Patient Position: Sitting BP Cuff Size: Adult Pulse: 85 Resp: 17 Temp: 97.6 ??F (36.4 ??C) TempSrc: Oral Weight: 179 lb 4.8 oz (81.3 kg) Height: 5' 3 (1.6 m) Color, UA Yellow Clarity, UA Cloudy Glucose, UA Negative Bilirubin, UA Negative Ketones, UA Negative Spec Grav, UA 1.025 Blood, UA Positive Abnormal Comment: small pH, UA 5.5 Protein, UA Negative Urobilinogen, UA 0.2 Leukocytes, UA Trace Comment: small Nitrite, UA Negative Appearance, UA cloudy - Urinalysis (dipstick): negative for leukocyte esterase and nitrites, no evidence of urinary tractinfection - Microscopic hematuria noted on dipstick, attributed to menses contamination Physical Exam Vitals reviewed. Constitutional: Appearance: Normal appearance. HENT: Head: Atraumatic. Cardiovascular: Rate and Rhythm: Normal rate and regular rhythm. Pulses: Normal pulses. Heart sounds: Normal heart sounds. No murmur heard. Pulmonary: Effort: Pulmonary effort is normal. Breath sounds: Normal breath sounds. No wheezing. Abdominal: Tenderness: There is no abdominal tenderness. There is no right CVA tenderness or left CVA tenderness. Neurological: Mental Status: She is alert and oriented to person, place, and time. Psychiatric: Mood and Affect: Mood normal. Behavior: Behavior normal. Assessment/Plan Problem List Items Addressed This Visit None Visit Diagnoses Vaginal itching Vaginal discharge - Most likely candidiasis, BV but diagnosis to be confirmed pending laboratory results. - Sent vaginal discharge sample to laboratory for further testing. Will notify regarding results and initiate treatment if confirmed. If all tests return negative, will follow up for further evaluation. Relevant Orders POCT Urinalysis Chlamydia/N. Gonorrhoeae RNA, TMA, Urogenitial Culture, Urine, Routine Bacterial Vaginosis Bacterial vaginosis Relevant medication metroNIDAZOLE (Flagyl) 500 MG tablet This note was drafted using Ambient (AI) technology. The patient/patient's guardian has been informed and has consented to the use of this technology: Yes Future Appointments Date Time Provider Department Center 10/19/2025 3:00 PM [facility] 3 WALK-IN [facility] M [1] No Known Allergies documented in this encounter Miscellaneous Notes * Addendum Note - JESS Wilcox - 10/19/2025 3:00 PM ESTAddended by: AMRITA ARIZMENDI on: 10/20/2025 01:17 PM Modules accepted: Orders documented in this encounter Plan of Treatment Scheduled Orders Name Type Priority Associated Diagnoses Orde r Schedule Chlamydia/N. Gonorrhoeae RNA, TMA, Urogenitial Microbiology Routine Vaginal itching Vaginal discharge Ordered: 10/19/2025 Culture, Urine, Routine Microbiology Routine Vaginal itching Vaginal discharge Ordered: 10/19/2025 documented as of this encounter Procedures Procedure Name Priority Date/Time Associated Diagnosis Comments POCT URINALYSIS DIPSTICK Routine 10/19/2025 1:50 PM EST Vaginal itching BACTERIAL VAGINOSIS PANEL Routine 10/19/2025 12:00 AM EST Vaginal itching Vaginal discharge documented in this encounter Results * (ABNORMAL) POCT Urinalysis (10/19/2025 1:50 PM EST) Color, UA Yellow Clarity, UA Cloudy Glucose, UA Negative Bilirubin, UA Negative Ketones, UA Negative Spec Grav, UA 1.025 Blood, UA Positive(A) Negative, None Detected Comment:small pH, UA 5.5 Protein, UA Negative Urobilinogen, UA 0.2 Leukocytes, UA Trace Negative, Rare, Trace Comment:small Nitrite, UA Negative Negative, None Detected Appearance, UA cloudy QC Media Lot # [id number] Lot# Expiration Date [id number] Urine (Urine, Random) 10/19/2025 1:50 PM EST [facility] POINT OF CARE TEST ENTER/EDIT ORDERABLES Final Result * (ABNORMAL) Bacterial Vaginosis (10/19/2025 12:00 AM EST) TRICHOMONAS VAGINALIS DETECTION BY PCR NOT DETECTED Not Detect [facility] BACTERIAL VAGINOSIS DETECTION BY PCR POSITIVE(A) Negative [facility] Comment:The BV organism targ ets of the Xpert Xpress MVP test can becommensal in women; Xpert Xpress MVP positive results forbacterial vaginosis should be considered in conjunction withother clinical and patient information to determine thedisease status. Organisms that are not detected by the XpertXpress MVP test have also been reported to be associatedwith BV and aerobic vaginitis.The Xpert Xpress MVP test performance has not been evaluatedin patients under the age of 14. LIZZETH GROUP DETECTION BY PCR NOT DETECTED Not Detect [facility] Lizzeth glab krusei PCR NOT DETECTED Not Detect [facility] Swab Vaginal structure / Unknown 10/19/2025 10/19/2025 Amrita [facility] MICROBIOLOGY - GENERAL ORD ERABLES Final Result [facility] [address] [place] [address] [phone] documented in this encounter Visit Diagnoses Diagnosis Vaginal discharge- Primary Leukorrhea, not specified as infective Vaginal itching Pruritus of genital organs BV (bacterial vaginosis) Unspecified vaginitis and vulvovaginitis documented in this encounter Additional Health Concerns Assessment Noted Time PHQ-9 Depression Total Score: 0 05/07/20 23 10:12 AM EDT documented as of this encounter Care Teams Qa Test Lead Relationship Specialty Start Date End Date Desi Cortés MD [address] [place] [id number] PCP - General Family Medicine 05/09/23 documented as of this encounter
[2025-10-20 12:07] LABS: Bacterial Vaginosis PCR POSITIVE (Negative); Candida Group PCR NOT DETECTED (Not Detect); Candida glab krusei PCR NOT DETECTED (Not Detect); Trichomonas vaginalis PCR NOT DETECTED (Not Detect)
--- OUTSIDE RECORDS SUMMARY | 2025-10-20 13:22 | XMS_ITS | Encounter Summary ---
Author Organization [employer] Address [address] [facility] 7t [place] [address] Care Team Providers Care Wheel Cutter Name Role Phone Desi Cortés MD Primary Care Provider [phone] Encounter Details Date Type Department Care Team ([facility] st Contact Info) Description 06/09/2024 Orders Only [facility] [address] [place] [address] Debra Bennett NP [address] [place] [address] Atopic dermatitis, unspecified type (Primary Dx) Social History Tobacco Use Types Packs/Day Years Used Date Smoking Tobacco: Never Passive Smoke Exposure: Never Smokeless Tobacco: Never Alcohol Use Standard Drinks/Week Comments Not Currently [...] Recorded Patient Health Questionnaire-2 Score 0 05/07/2023 Comments Yes Sex and Gender Information Value Date Recorded Sex Assigned at Female 10/01/2022 10:22 AM EDT Legal Sex Female 10:22 AM EDT Gender Identity Female 10/01/2022 10:22 AM EDT Sexual Orientation Straight 10/01/2022 10 :22 AM EDT documented as of this encounter Plan of Treatment Not on file documented as of this encounter Visit Diagnoses Diagnosis Atopic dermatitis, unspecified type- Primary documented in this encounter Additional Health Concerns Assessment Noted Time PHQ-9 Depression Total Score: 0 05/07/20 10:12 AM EDT documented as of this encounter Care Teams Wheel Cutter Relationship Specialty Start Date End Date Desi Cortés MD [address] [place] [address] PCP - General Family Medicine 05/09/23 documented as of this encounter
--- OUTSIDE RECORDS SUMMARY | 2025-10-20 13:22 | XMS_ITS | Encounter Summary ---
Author Organization [employer] Address [address] 7[address] [place] [address] Care Team Providers Care Community Service Worker Name Role Phone Desi Cortés MD Primary Care Provider [phone] Encounter Details Date Type Department Care Team (Latest Contact Info) Description 10/19/2025 Travel Social History Tobacco Use Types Packs/Day Years [...] documented as of this encounter Visit Diagnoses Not on filedocumented in this encounter Additional Health Concerns Assessment Noted Time PHQ-9 Depression Total Score: 0 05/07/20 10:12 AM EDT documented as of this encounter Care Teams Community Service Worker Relationship Specialty Start Date End Date Desi Cortés MD [address] [place] [id number] PCP - General Family Medicine 05/09/23 documented as of this encounter
--- OUTSIDE RECORDS SUMMARY | 2025-10-20 13:22 | XMS_ITS | Clinical Summary ---
Author Organization [employer] Address [address] [facility] 7t [place] [address] Care Team Providers Care Draft Roller Picker Name Role Phone Desi Cortés MD Primary Care Provider [phone] Allergies No known active allergies Medications tamsulosin (Flomax) 0.4 MG 24 hr capsuleIndicatio ns:Recurrent kidney stones Take 1 capsule by mouth every morning until you pass stone 10 capsule 1 3 Active Additional Information Patient not taking.Reported on 10/16/2023 albuterol 108 (90 Base) MCG/ACT inhaler Inhale 2 puffs every 4 (four) hours if needed for wheezing or shortness of breath. Maximum 8 puffs per day 18 g 3 3 Active Additional Information Patient not taking.Reported on 10/16/2023 medroxyPROGESTER one (Depo-Provera) 150 MG/ML injection Inject 1 mL (150 mg) into the shoulder, thigh, or buttocks every 3 (three) months. 1 mL 3 3 Active Additional Information Patient not taking.Reported on 10/16/2023 Vit-Fe Fumarate-FA ( Plus) 27-1 MG tablet One tablet by mouth daily 30 tablet 11 3 Active triamcinolone (Kenalog) 0.1 % creamIndications :Atopic dermatitis, unspecified type Apply topically if needed in the morning and at bedtime for rash (rash). 120 g 4 Active metroNIDAZOLE (Flagyl) 500 MG tabletIndication s:BV (bacterial vaginosis) Take 1 tablet (500 mg) by mouth 2 times daily for 7 days. 14 tablet 11/10/27/20 Active Active Problems Problem Noted Date Diagnosed Date Urinary tract infection without hematuria 2023 Assessment & Plan (08/21/2024 2:43 PM EDT): -Urine dip negative and urine culture sent to the lab -Empiric antibiotics started -Potential adverse effects of the medication reviewed -Discussed strategies to prevent future infections: Increase fluids. Urinate after sex. Avoid bladder irritants. -Report fever, chills, worsening symptoms or abdominal/flank pain -Advised to seek medical attention if no improvement or worsening of symptoms -ER precautions reviewed. Class 1 obesity due to exces s calories without serious comorbidity with body mass index (BMI) of 31.0 to 31.9 in adult 05/07/2023 Assessment & Plan (05/08/2023 4:20 PM EDT): - continue working on lifestyle modifications Recurrent kidney stones 07/23/2017 Assessment & Plan (05/08/2023 4:19 PM EDT): - encouraged to contact urologist and schedule a follow-up appt - likely having kidney stone currently - short-course of tamsulosin to help stone passage - continue adequate hydration with water - reviewed ER precaution Allergic rhinitis 07/23/2017 Assessment & Plan (05/08/2023 4:21 PM EDT): - consider antihistamine and nasal steroid during allergy season - pt did not request any medication today Asthma 11/19/2012 Assessment & Plan (05/08/2023 4:17 PM EDT): - continue albuterol HFA prn Resolved Problems Problem Noted Date Diagnosed Date Resolved Date Cyst of ovary 11/19/2012 05/08/2023 Encounters Date Type Department Care Team Description 10/19/2025 3:00 PM EST Office Visit [facility] [address] [address] Amrita Mercedes FNP Vaginal discharge (Primary Dx); Vaginal itching; BV (bacterial vaginosis) 10/19/2025 Travel from Last 3 Months Immunizations Immunization Administration Dates Next Due DTaP, 5 pertussis antigens 07/05/1999,,1998,1997 HPV, Quadrivalent 11/19/2012,02/18/2012,07/20/20 09 Hep B, Adolescent or Pediatric 1998,1997 Hib (HbOC) 07/05/1999, 9,1998,1997 IPV 03/27/2002, 9,1998,1997 Influenza Injectable Quadriv alant Preservative Free IIV4 MDCK 10/13/2020,09/04/2018 Influenza injectable quadriv alent preservative free 10/16/2023 Influenza, Split (incl. aaron fied surface antigen) 01/05/2014,11/19/2012 MMR 03/27/2002,07/05/1999 Pfizer Covid-19 Vaccine 12+ doc-sucrose (Howell Cap) 12/19/2021 Tdap 10/13/2020, 9,04/10/2017,2014,07/20/2009 Varicella 02/08/2012,07/05/1999 Family History Medical History Relation Name Comments Arthritis Maternal Grandmother Rukhsana Hypertension Maternal Grandmother Rukhsana Arthritis Mother Lala Hypertension Mother Lala Diabetes Paternal Grandfather Seth Asthma Sister Mirian Asthma Son Rey Relation Name Status Comments Maternal Grandmother Rukhsana Mother Lala Paternal Grandfather Seth Sister Mirian Son Rey Social History Tobacco Use Types Packs/Day Years [...] Orientation Straight 10/01/2022 10 :22 AM EDT Last Filed Vital Signs Vital Sign Reading Time Taken Comments Blood Pressure 119/66 10/19/2025 1:37 PM EST Pulse 85 10/19/2025 1:37 PM EST Temperature 36.4 C (97.6 F) 10/19/2025 1:37 PM EST Respiratory Rate 17 10/19/2025 1:37 PM EST Oxygen Saturation 99% 12/24/2024 10:06 AM EST Inhaled Oxygen Concentration - - Weight 81.3 kg (179 lb 4.8 oz) 10/19/2025 1:37 P M EST Height 160 cm (5' 3 ) 10/19/2025 1:37 PM EST Body Mass Index 31.76 10/19/2025 1:37 PM EST Plan of Treatment Health Maintenance Due Date Last Done Comments Dental Oral Exam 1998 Dental Prophylaxis 1998 Dental X-Ray: Bitewings 1998 Dental X-Ray: Full Mouth 1998 Lipid Panel 1998 Disability Screening 1998 Hepatitis B Vaccines (3 of 3 - 3-dose series) 1998 1998, 1998 Alcohol/Substance Use Screening 2010 Family Planning (PISQ) 2013 Pneumococcal Vaccine: Pediatrics (0 to 5 Years) and At-Risk Patients (6 to 49) Years (1 of 2 - PCV) 2017 Depression Screening 05/07/2024 05/07/2023, 05/07/20 23 SDOH Screening 05/26/2025 05/26/2024 COVID-19 Vaccine (2 - season) 2025 12/19/2021 Influenza Vaccine (#1) 2025 , 10/16/2023, 10/13/2020, Additional history exists Tobacco Screening 10/19/2026 10/19/2025 HPV/Cotest 12/04/2026 12/04/2023 Pap Smear 12/04/2026 12/04/2023, 10/02, 11/01/2020, Additional history exists DTaP/Tdap/Td Vaccines (11 - Td or Tdap) 04/01/2034 04/01/2024, 10/13/2020, 12/17/2018, Additional history exists Zoster Vaccines (1 of 2) 2048 RSV Patients and Patients Aged 60 years or older (1 - 1-dose 75+ series) 2073 HIB Vaccines Completed 07/05/1999, 12/02, 1998, Additional history exists IPV Vaccines Completed 03/27/2002, 01/30, 1998, Additional history exists HPV Vaccines Completed 11/19/2012, 01/30, 07/20/2009 HIV Screening Completed 05/07/2023 Hepatitis C Screening Completed 05/07/2023 Hepatitis A Vaccines Aged Out No long er eligible based on patient's age to complete this topic Meningococcal B Vaccine Aged Out No l onger eligible based on patient's age to complete this topic Meningococcal Vaccine Aged Out No kandice rita eligible based on patient's age to complete this topic RSV under 20 months Aged Out No longe r eligible based on patient's age to complete this topic Rotavirus Vaccines Aged Out No longer eligible based on patient's age to complete this topic Procedures Procedure Name Priority Date/Time Associated Diagnosis Comments POCT URINALYSIS DIPSTICK Routine 10/19/2025 1:50 PM EST Vaginal itching BACTERIAL VAGINOSIS PANEL Routine 10/19/2025 12:00 AM EST Vaginal itching Vaginal discharge HM PAP/HPV Routine 12/04/2023 12:00 AM EST HEPATITIS C AB W/REFL TO HCV RNA, QN, PCR Routine 05/07/2023 10:57 AM EDT Routine screening for STI (sexually transmitted infection) HIV 1/2 ANTIGEN/ANTIBODY, FOURTH GENERATION W/RFL Routine 05/07/2023 10:57 AM EDT Routine screening for STI (sexually transmitted infection) from Last 3 Months or Most Recently Relevant to Health Maintenance Results * (ABNORMAL) POCT Urinalysis (10/19/2025 1:50 [...] Media Lot # [id number] Lot# Expiration Date , Urine (Urine, Random) 10/19/2025 1:50 PM EST Amrita Mercedes SCUBA DIVE TRAINING INSTRUCTOR POINT OF CARE TEST ENTER/EDIT ORDERABLES Final Result * (ABNORMAL) Bacterial Vaginosis (10/19/2025 12:00 AM EST) TRICHOMONAS VAGINALIS DETECTION BY PCR NOT DETECTED Not Detect [facility] BACTERIAL VAGINOSIS DETECTION BY PCR POSITIVE(A) Negative [facility] Comment:The BV organism targ ets [...] DETECTION BY PCR NOT DETECTED Not Detect [facility] Lizzeth glab krusei PCR NOT DETECTED Not Detect [facility] Swab Vaginal structure / Unknown 10/19/2025 10/19/2025 Amrita Okmegan SCUBA DIVE TRAINING INSTRUCTOR LAB MICROBIOLOGY - GENERAL ORD ERABLES Final Result [facility] [address] [place] [phone] * (ABNORMAL) HM PAP/HPV (12/04/2023 12:00 AM EST) Pap Smear 3. ASC-H(A) 1. NILM HPV Not Detected Undetected, Indeterminat e, Quantitative , Not Detected Historical Provider MD HEALTH MAINTENANCE Edited Result - Final * Hepatitis C Antibody with Reflex to HCV, RNA, Quantitative, Real-Time PCR (05/07/2023 10:57 AM EDT) Hepatitis C Antibody NON-REACT JUSTINO NON-REACT JUSTINO [facility] Index 0.16 <1.00 [facility] Comment: HCV antibody was non-reactive. There is no laboratory evidence of HCV infection. In most cases, no further action is required. However, if recent HCV exposure is suspected, a test for HCV RNA (test code 35100) is suggested. For additional information please refer to http://education.[employer]/faq/FDE82s7 (This link is being provided for informational/ educational purposes only.) Blood Venous blood specimen / Unknown 05/07/2023 10:57 AM EDT 05/07/2023 10:58 AM EDT Narrative [facility] - 05/08/2023 7:54 PM EDT FASTING:NO FASTING: NO Desi Cortés MD LAB BLOOD ORDERABLES Final Resul t PUNEET Chvaez [address], [place] [address] [facility] [address] [place] [address] * HIV-1/2 Antigen and Antibodies, Fourth Generation, with Reflexes (05/07/2023 10:57 AM EDT) HIV Antigen/Antibody, 4th Generation NON-REAC TIVE NON-REAC TIVE [facility] Comment: HIV-1 antigen and HIV-1/HIV-2 antibodies were not detected. There is no laboratory evidence of HIV infection. PLEASE NOTE: This information has been disclosed to you from records whose confidentiality may be protected by state law. If your state requires such protection, then the state law prohibits you from making any further disclosure of the information without the specific written consent of the person to whom it pertains, or as otherwise permitted by law. A general authorization for the release of medical or other information is NOT sufficient for this purpose. For additional information please refer to http://education.[employer]/faq/MXS802 (This link is being provided for informational/ educational purposes only.) The performance of this assay has not been clinically validated in patients less than 2 years old. Blood Venous blood specimen / Unknown 05/07/2023 10:57 AM EDT 05/07/2023 10:58 AM EDT Narrative [facility] - 05/08/2023 7:54 PM EDT FASTING:NO FASTING: NO Desi Cortés MD LAB BLOOD ORDERABLES Final Resul t PUNEET Chavez [address], [place] [address] [email or web address] [address] [place] [address] from Last 3 Months or Most Recently Relevant to Health Maintenance Insurance [place] [facility] MEDICAID STAND ADULT Care Teams Draft Roller Picker Relationship Specialty Start Date End Date Desi Cortés MD [address] [place] [address] PCP - General Family Medicine 05/09/23
--- OUTSIDE RECORDS SUMMARY | 2025-10-20 13:22 | XMS_ITS | Encounter Summary ---
Author Organization [facility] Address [address] [facility] [address] [place] [address] Phone Care Team Providers Care Silo Painter Name Role Phone Pcp, Unknown Primary Care Provider Unavailabl e Encounter Details Date Type Department Care Team (Late st Contact Info) Description 02/13/2022 Procedure Pass [facility], Ct Scan - [address] [address] Social History Tobacco Use Types Packs/Day Years Used Date Smoking Tobacco: Never Assessed Comments Unknown Sex and Gender Information Value Date Recorded Sex Assigned at Female 02/13/2022 1:27 PM EDT Legal Sex Female 1:23 PM EDT Gender Identity Female 02/13/2022 1:27 PM EDT Sexual Orientation Not on file documented as of this encounter Functional Status * Calculated C-SSRS Risk Score (Lifetime/Recent) Answer Date of Assessment Author No Risk Indicated 02/13/2022 1:27 PM EDT Bárbara Ruiz RN * [place] Suicide Severity Rating Scale (Screener/Recent Self-Report) Question Answer Date of Assessment Author 1. Wish to be (Past 1 Month) No 022 1:27 PM EDT Bárbara Ruiz RN 2. Non-Specific Active Suici binta Thoughts (Past 1 Month) No 02/13/2022 1:27 PM EDT Marilyn Ruiz RN 6. Suicidal Behavior (Lifetime) No 1:27 PM EDT Bárbara Ruiz RN documented as of this encounter Plan of Treatment Not on file documented as of this encounter Visit Diagnoses Not on filedocumented in this encounter Care Teams Silo Painter Relationship Specialty Start Date End Date Pcp, Unknown PCP - General 02/13/22 documented as of this encounter Additional Source Comments The information contained in this document represents components of the legal health record. It is not the complete legal health record.[facility]
--- OUTSIDE RECORDS SUMMARY | 2025-10-20 13:22 | XMS_ITS | Clinical Summary ---
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 Urinary frequency 09/15/2020 DX:Urinary truong quency Family History Medical History Relation Name Comments No Known Problems Father COPD Maternal Grandfather Diabetes Maternal Grandfather Hypertension Maternal Grandfather Other: Other Maternal Grandfather Hypertension Maternal Grandmother Hypertension Mother Migraines Mother Anemia Paternal Grandfather Diabetes Paternal Grandfather No Known Problems Paternal Grandmother No Known Problems Sister 1 No Known Problems Sister 2 Asthma Sister 3 Breast cancer Neg Hx Relation Name Status Comments Father Alive Maternal Grandfather Maternal Grandmother Alive Mother Alive Paternal Grandfather Alive Paternal Grandmother Alive Sister 1 Alive Sister 2 Alive Sister 3 Alive Social History Tobacco Use Types Packs/Day Years Used Date Smoking Tobacco: Never Smokeless Tobacco: Never Alcohol Use Standard Drinks/Week Comments No 0 (1 standard drink = 0.6 oz pur e alcohol) Comments Unknown Sex and Gender Information Value Date Recorded Sex Assigned at Not on file Legal Sex Female 3:58 AM EST Gender Identity Not on file Sexual Orientation Not on file Obstetrics History Last Filed Vital Signs Vital Sign Reading Time Taken Comments Blood Pressure 129/76 04/30/2024 11:25 AM EDT Pulse 101 04/30/2024 11:25 AM EDT Temperature - - Respiratory Rate - - Oxygen Saturation - - Inhaled Oxygen Concentration - - Weight 84.4 kg (186 lb) 04/30/2024 11:25 AM EDT Height - - Body Mass Index - - Plan of Treatment Health Maintenance Due Date Last Done Comments Hepatitis B Vaccines (1 of 3 - 19+ 3-dose series) 2017 Pneumococcal Vaccine: Pediatrics (0 to 5 Years) and At-Risk Patients (6 to 49 Years) (1 of 2 - PCV) 2017 HIV Screening 11/04/2022 Hepatitis C Screening 11/04/2022 Social Influencers of Health Screening 11/04/2022 Depression Screening 12/02/2024 HPV Vaccines (1 - 3-dose SCDM series) 2025 COVID-19 Vaccine ( - season) 2025 Influenza Vaccine (#1) 2025 10/13/2020, 2017 Cervical Cancer Screening: Pap Smear 12/04/2026 12/04/2023, 04/29/2020 DTaP,Tdap,and Td Vaccines (6 - Td or Tdap) 04/01/2034 04/01/2024, 10/13/2020, 12/17/2018, Additional history exists RSV Immunization Adult Patients (1 - 1-dose 75+ series) 2073 HIB Vaccines Aged Out No longer eligi ble based on patient's age to complete this topic Hepatitis A Vaccines Aged Out No long er eligible based on patient's age to complete this topic IPV Vaccines Aged Out No longer eligi ble based on patient's age to complete this topic MMR Vaccines Aged Out No longer eligi ble based on patient's age to complete this topic Meningococcal ACWY Vaccine Aged Out N o longer eligible based on patient's age to complete this topic Meningococcal B Vaccine Aged Out No l onger eligible based on patient's age to complete this topic RSV Immunization Patients Under 20 months Aged Out No longer eligible based on patient's age to complete this topic Varicella Vaccines Aged Out No longer eligible based on patient's age to complete this topic Procedures Procedure Name Priority Date/Time Associated Diagnosis Comments PAP SMEAR Routine 12/04/2023 from Last 3 Months or Most Recently Relevant to Health Maintenance Results * Pap smear (12/04/2023) 12/04/2023 Narrative HISTORICAL TESTING LAB RESULTING AGENCY - 12/16/2023 6:46 AM EST [id number] THINPREP PAP, IMAGED: ATYPICAL SQUAMOUS CELLS OF UNDETERMINED SIGNIFICANCE (ASCUS) . HEIDY VILLAR M.D. , PATHOLOGIST (CASE ELECTRONICALLY SIGNED 12 13 2023) RESULT OF APTIMA HIGH RISK HPV ASSAY: HIGH RISK HPV: NEGATIVE (SEROTYPES 16,18,31,33,35,39,45,51,52,56,58,59,66,68) COMPLETED ON 2023-12-13 ADEQUACY: SATISFACTORY ENDOCERVICAL/TRANSFORMATION ZONE COMPONENT PRESENT. SOURCE: THINPREP PAP HPV IF ASCUS, CERVICAL, IMAGED CLINICAL INFORMATION: HPV IF DIAGNOSIS OF ASCUS. , PAP HX NEGATIVE, LMP 09/02/23, [Z12.4] Kira Shin CNM LAB CYTOLOGY ORDERABLES Final Result HISTORICAL TESTING LAB RESULTING AGENCY from Last 3 Months or Most Recently Relevant to Health Maintenance Care Teams Route Specialist Relationship Specialty Start Date End Date Desi Cortés MD [address] [place] [phone] PCP - General 11/11/23
--- OUTSIDE RECORDS SUMMARY | 2025-10-20 13:22 | XMS_ITS | Clinical Summary ---
Author Organization [facility] Address [address] [facility] [address] [place] [phone] Phone Care Team Providers Care Business Operations Consultant Name Role Phone Pcp, Unknown Primary Care Provider Unavailabl e Allergies No known active allergies Social History Tobacco Use Types Packs/Day Years Used Date Smoking Tobacco: Never Assessed Education Answer Date Recorded Are you interested in more education? Not on maury e 03/30/2023 Are you concerned about learning? Not on file 03/30/2023 No 03/30/2023 No 03/30/2023 Digital Access Answer Date Recorded No 04/30/2023 No 04/30/2023 Reliable internet access at home? Not on file 04/30/2023 Device with a working camera? Not on file Intimate Partner Violence Answer Date R ecorded Are you denied basic needs s uch as food, clothing, or medical care? No 02/05/2023 In the past 12 months have y ou been in a relationship with a person who hurts, threatens, or tries to control you? No 02/05/2023 Are you denied basic needs s uch as food, clothing, or medical care? No 02/05/2023 In the past 12 months have y ou been in a relationship with a person who hurts, threatens, or tries to control you? No 02/05/2023 Comments Unknown Sex and Gender Information Value Date Recorded Sex Assigned at Female 02/13/2022 1:27 PM EDT Legal Sex Female 1:23 PM EDT Gender Identity Female 02/13/2022 1:27 PM EDT Sexual Orientation Not on file Last Filed Vital Signs Vital Sign Reading Time Taken Comments Blood Pressure 121/71 02/05/2023 11:25 PM EST Pulse 74 02/05/2023 11:25 PM EST Temperature 36.6 C (97.8 F) 02/05/2023 11:25 PM EST Respiratory Rate 18 02/05/2023 11:25 PM EST Oxygen Saturation 99% 02/05/2023 11:25 PM EST Inhaled Oxygen Concentration - - Weight 82.6 kg (182 lb) 02/13/2022 1:24 PM EDT Height 160 cm (5' 3 ) 02/13/2022 1:24 PM EDT Body Mass Index 32.24 02/13/2022 1:24 PM EDT Plan of Treatment Not on file Medical Devices Not on file Insurance C3 ACO C3 ACO C3 ACO C3 ACO C3 ACO C3 ACO C3 ACO C3 ACO Care Teams Business Operations Consultant Relationship Specialty Start Date End Date Pcp, Unknown PCP - General 02/13/22 Additional Source Comments The information contained in this document represents components of the legal health record. It is not the complete legal health record.[facility]
--- OUTSIDE RECORDS SUMMARY | 2025-10-20 13:22 | XMS_ITS | Encounter Summary ---
Author Organization [employer] Address [address] [place] [address] Care Team Providers Care Business Systems Manager Name Role Phone Desi Cortés MD Primary Care Provider [phone] Encounter Details Date Type Department Care Team ([facility] st Contact Info) Description 05/31/2023 Abstract [facility] MEDICINE [address] [place] [address] Desi Cortés MD [address] [place] [address] Social History Tobacco Use Types Packs/Day Years Used Date Smoking Tobacco: Never Passive Smoke Exposure: Never Smokeless Tobacco: Never Depression Answer Date Recorded Patient Health Questionnaire-9 Score 0 05/07/2023 Depression Answer Date Recorded Patient Health Questionnaire-2 Score 0 05/07/2023 Comments Unknown Sex and Gender Information Value Date Recorded Sex Assigned at Female 10/01/2022 10:22 AM EDT Legal Sex Female 10:22 AM EDT Gender Identity Female 10/01/2022 10:22 AM EDT Sexual Orientation Straight 10/01/2022 10 :22 AM EDT COVID-19 Exposure Response Date Recorded In the last 10 days, have yo u been in contact with someone who was confirmed or suspected to have Coronavirus/COVID-19? No / Unsure 05/06/2023 10:40 AM EDT documented as of this encounter Plan of Treatment Not on file documented as of this encounter Visit Diagnoses Not on filedocumented in this encounter Additional Health Concerns Assessment Noted Time PHQ-9 Depression Total Score: 0 05/07/20 23 10:12 AM EDT documented as of this encounter Care Teams Business Systems Manager Relationship Specialty Start Date End Date Desi Cortés MD [address] [place] [address] PCP - General Family Medicine 05/09/23 documented as of this encounter
[2025-10-20 14:06] LABS: CT PCR DETECTED (Not Detect.); NG PCR NOT DETECTED (Not Detect.)
== END 2025-10-19 14:01 | disposition home or self-care (01) ==
LOC: HO.HHCLNP 14:00
PROVIDERS: Visit Provider Nurse Practitioner Family
DX: N89.8 Other specified noninflammatory disorders of vagina (principal); Z20.2 Contact with and (suspected) exposure to infections with a predominantly sexual mode of transmission
CPT/HCPCS: 81515; 87086; 87491; 87591